=== PATIENT | male | born 1960 | race Caucasian/White ===

== ENCOUNTER → 2018-02-27 10:43 | Outpatient (CLI) | payer MEDICARE, MEDICAID, SELFPAY ==
--- NOTE | 2018-02-27 10:54 | RAD_ITS ---
STUDY: X-RAY - LUMBAR SPINE REASON FOR EXAM: Male, 57 years old. Lower back pain TECHNIQUE: 5 view(s) of the lumbar spine were obtained. COMPARISON: None FINDINGS: Normal lumbar lordosis. There is no substantial scoliosis. There is a normal alignment of the vertebrae. There is multilevel endplate spondylosis of the lumbar vertebrae. Minor loss of disc space at L2-L3 and L1-L2. There is no demonstrated fracture. There is no demonstrated spondylolysis of the pars interarticulares. The soft tissue structures are unremarkable. RAD/L/S Spine Min 4 Views IMPRESSION: Mild spondylosis and degenerative disc disease Electronically Signed: Kushal Lopez MD at 15:19 EST , Service support ,
== END ==
PROVIDERS: Family Provider Family Medicine; PCP Family Medicine; Referring Provider Family Medicine; Visit Provider Family Medicine
DX: M54.9 Dorsalgia, unspecified (principal)
CPT/HCPCS: 72110

== ENCOUNTER → 2018-11-03 11:37 | Outpatient (CLI) | payer MEDICARE, MEDICAID, SELFPAY ==
--- NOTE | 2018-11-03 11:45 | RAD_ITS ---
STUDY: X-RAY - LEFT ANKLE REASON FOR EXAM: Male, 57 years old. Left ankle pain TECHNIQUE: 3 view(s) of the ankle. COMPARISON: None. FINDINGS: Normal visualized distal tibia and fibula. Normal medial and lateral malleoli. Normal tibiotalar articulation and ankle mortise. Normal visualized talus and calcaneus. The visualized subtalar, talonavicular, calcaneocuboid and tarsal articulations are normal. There is no demonstrated fracture. The soft tissue structures are unremarkable. RAD/Ankle min 3 Views IMPRESSION: Normal x-ray examination of the ankle. Electronically Signed: James Owens MD at 17:06 EDT , Service support ,
== END ==
PROVIDERS: Family Provider Family Medicine; PCP Family Medicine; Referring Provider Family Medicine; Visit Provider Family Medicine
DX: M25.572 Pain in left ankle and joints of left foot (principal)
CPT/HCPCS: 73610

== ENCOUNTER → 2019-01-08 11:11 | Outpatient (CLI) | payer MEDICARE, MEDICAID, SELFPAY ==
[2019-01-08 12:44] LABS: Anion Gap 6 (5-15); BUN 11 mg/dL (7-18); BUN/Creat Ratio 11.2 RATIO (10-20); Calcium,Total 8.8 mg/dL (8.5-10.1); Chloride 108 mmol/L (98-107); Creatinine, Serum 0.98 mg/dL (0.70-1.30); EST Glomerular Filtration Rate 83 mL/min (>60); Est Glom Filt Rate - Afr Amer 100 mL/min (>60); Glucose 83 mg/dL (74-106); Potassium 4.1 mmol/L (3.5-5.1); Sodium Level 140 mmol/L (136-145)
== END ==
PROVIDERS: Family Provider Family Medicine; PCP Family Medicine; Referring Provider Family Medicine; Visit Provider Family Medicine
DX: Z00.00 Encounter for general adult medical examination without abnormal findings (principal)
CPT/HCPCS: 36415; 80048

== ENCOUNTER → 2020-04-28 09:49 | Outpatient (CLI) | payer MEDICARE, MEDICAID, SELFPAY ==
--- NOTE | 2020-04-28 10:07 | RAD_ITS ---
STUDY: X-RAY - ABDOMEN/PELVIS REASON FOR EXAM: Male, 59 years old. ABD PAIN TECHNIQUE: AP supine and upright views of the abdomen and pelvis. COMPARISON: None. FINDINGS: Normal visualized lung bases. There is a mildly dilated, air-filled small bowel loop in the left abdomen. There is no demonstrated free abdominal air. Normal soft tissue structures. Normal visualized osseous structures. RAD/Abd Inc Decub and/or Erect IMPRESSION: Mildly dilated air-filled small bowel loop in the left abdomen. Ileus is felt to be more likely. Electronically Signed: Regino Case MD at 11:27 EST Tel , Service support ,
[2020-04-28 12:32] LABS: Absolute Neutrophil Count 3.3 X10^3/uL (2.0-7.7); Basophil# 0.01 X10^3/uL; Basophil% 0.2 % (0-1); Eosinophil# 0.08 X10^3/uL; Eosinophils% 1.4 % (0-5); Hematocrit 50.6 % (40-54); Hemoglobin 16.5 g/dL (13.0-16.5); Lymphocyte % 29.5 % (19-41); Mean Corp Hgb Conc 32.6 g/dL (32-36); Mean Corpuscular Hgb 29.7 pg (27.0-32.0); Mean Corpuscular Volume 91.2 fL (80-94); Mean Platelet Vol. 10.2 fl (6.2-12.0); Monocyte# 0.67 X10^3/uL; Monocyte% 11.6 % (0-10); NRBC Flagged by Analyzer 0 % (0-5); Neutrophil # 3.28 X10^3/uL (2.7-7.7); Platelet Count 192 K/mm3 (150-450); RBC Distribution Width CV 13.2 % (11.6-14.6); RBC Distribution Width SD 44.6 fl (35.1-43.9); Red Blood Count 5.55 M/mm3 (4.6-6.2); White Blood Count 5.8 K/mm3 (4.4-11.0)
== END ==
PROVIDERS: PCP Family Medicine; Referring Provider Family Medicine; Visit Provider Family Medicine
DX: R10.9 Unspecified abdominal pain (principal)
CPT/HCPCS: 36415; 74019; 85025

== ENCOUNTER → 2022-05-13 | Outpatient (CLI) | payer MEDICARE, MEDICAID, SELFPAY ==
[2022-05-13 15:28] LABS: Absolute Neutrophil Count 5.5 X10^3/uL (2.0-7.7); Basophil# 0.05 X10^3/uL; Basophil% 0.5 % (0-1); Eosinophil# 0.21 X10^3/uL; Eosinophils% 2.3 % (0-5); Hematocrit 51.3 % (40-54); Hemoglobin 16.9 g/dL (13.0-16.5); Lymphocyte % 28.1 % (19-41); Mean Corp Hgb Conc 32.9 g/dL (32-36); Mean Corpuscular Hgb 30.3 pg (27.0-32.0); Mean Corpuscular Volume 92.1 fL (80-94); Mean Platelet Vol. 9.4 fl (6.2-12.0); Monocyte# 0.86 X10^3/uL; Monocyte% 9.3 % (0-10); NRBC Flagged by Analyzer 0 % (0-5); Neutrophil # 5.49 X10^3/uL (2.7-7.7); Neutrophil % 59.3 % (47-70); Platelet Count 351 K/mm3 (150-450); RBC Distribution Width CV 13.3 % (11.6-14.6); RBC Distribution Width SD 45.1 fl (35.1-43.9); Red Blood Count 5.57 M/mm3 (4.6-6.2); White Blood Count 9.3 K/mm3 (4.4-11.0)
[2022-05-13 16:03] LABS: ALB/GLOB Ratio 1.2 RATIO (0.9-2.4); AST(SGOT) 15 U/L (15-37); Alanine Aminotransfer ALT/SGPT 24 U/L (16-61); Albumin, Serum 3.8 g/dL (3.2-5.0); Alkaline Phosphatase 73 U/L (45-117); Anion Gap 4 (5-15); BUN 13 mg/dL (7-18); BUN/Creat Ratio 14.2 RATIO (10-20); Chloride 109 mmol/L (98-107); Creatinine, Serum 0.92 mg/dL (0.70-1.30); EST Glomerular Filtration Rate 89 mL/min (>60); Est Glom Filt Rate - Afr Amer 107 mL/min (>60); Globulin 3.3 g/dL (2.2-4.2); Glucose 75 mg/dL (74-106); Potassium 4.1 mmol/L (3.5-5.1); Protein, Total 7.1 g/dL (6.4-8.2); Sodium Level 137 mmol/L (136-145); Thyroid Stim Hormone (TSH) 1.79 uIU/mL (0.358-3.74)
== END | disposition home or self-care (01) ==
LOC: MFPLAB 12:01
PROVIDERS: PCP Family Medicine; Visit Provider Family Medicine
DX: M79.89 Other specified soft tissue disorders (principal); Z12.5 Encounter for screening for malignant neoplasm of prostate; R00.1 Bradycardia, unspecified
CPT/HCPCS: 36415; 80053; 84153; 84443; 85025; G0103

== ENCOUNTER 2022-07-17 05:40 | Day surgery (SDC) | payer MEDICARE, MEDICAID, SELFPAY ==
[2022-07-17] VITALS (8 sets, daily range): BP systolic 90–126; BP diastolic 61–88; PULSE 64–80; RESP 16–18; TEMP 36.2–36.7; O2SAT 94–98; BMI 21.6
--- NOTE | 2022-07-17 | IMM_PTH ---
PATIENT: BHAVNA MORRIS LOC: [facility] [place] U#:[id number] AGE/SX: 61/M ROOM: RE07/17/[address]: Dr. Marino Nath MD : 1960 BED: DIS: 07/17/2022 SPEC #: [id number] RECD: 07/18/22 13:10 STATUS: DELVIN REQ #: [id number] LA: 07/17/22 00:[address]: Marino Nath DEPT: IMMUNOHISTOCHEMISTRY RECD BY: Celi Marie ENTERED: 07/18/22 13:11 SP TYPE: IMMUNO OTHR DR: Dr. Purvi Yoon MD Tissues: F - PROSTATE RIGHT Procedures: P40 (add) 34BE12 (initial) PHYSICIAN & INSTITUTION [place] [address] SPECIMEN INFORMATION: Tissue Source: Clinical Info: Elevated PSA Specimen Number: [id number] Dinesh CPT code: 00527, 74765 METHODOLOGY: Deparaffinized sections of prefer/formalin-fixed tissue or PAP/DQ stained slides are incubated with monoclonal/polyclonal antibodies/oligonucleotide probes. Localization is made via biotin free immunoperoxidase method. Appropriate controls are performed and reacted as expected. Results on target cell population are indicated in the following table: RESULTS: ANTIBODY / CLONE RESULT Block F 34BE12 (34BE12) negative P40 (BC28) negative These tests were developed and their performance characteristics determined by [facility]. They may not have been cleared or approved by the U.S. Food and Drug Administration. The FDA has determined that such clearance or approval is not necessary. The above immunohistochemical/dualISH markers are ordered and reviewed by the Pathologist. INTERPRETATION: Natalio Left prostate, base, core biopsy: Adenocarcinoma. AM:[email or web address] 07/19/2022
--- NOTE | 2022-07-17 | PROSBIL_PTH ---
PATIENT: BHAVNA MORRIS [place] [facility] [place][id number] AGE/SX: 61/M ROOM: RE07/17/[address]: Dr. Marino Nath MD : 1960 BED: DIS: 07/17/2022 SPEC #: [id number] RECD: 07/17/22 09:40 STATUS: DELVIN REKandi #: [id number] LA: 07/17/22 00:[address]: Marino Nath DEPT: SURGICAL PATHOLOGY RECD BY: Brett Deng ENTERED: 07/17/22 09:41 SP TYPE: PROST BX CHRIS DR: Dr. Purvi Yoon MD Tissues: A - PROSTATE RIGHT B - PROSTATE RIGHT C - PROSTATE RIGHT D - PROSTATE LEFT E - PROSTATE LEFT F - PROSTATE LEFT Procedures: PROSTATE BX HEADER OPERATION: Ultrasound-guided prostate biopsy PRE-OP DIAGNOSIS: Elevated PSA TISSUE SUBMITTED: A - Left base, B - Left middle, C - Left apex, D - Right base, E - Right middle, F - Right apex MICROSCOPIC DIAGNOSIS A. Left prostate, base, core biopsy: Adenocarcinoma. Jenny grade: 7 (3+4) Cores involved: 1 out of 1 Tissue involved: 100% Greatest tumor length: 12 millimeters Perineural invasion: Present B. Left prostate, middle, core biopsy: Adenocarcinoma. Jenny grade: 7 (3+4) Cores involved: 1 out of 1 Tissue involved: 95% Greatest tumor length: 12 millimeters C. Left prostate, apex, core biopsy: Adenocarcinoma. Wilmerding grade: 7 (3+4) Cores involved: 1 out of 1 Tissue involved: 85% Greatest tumor length: 12 millimeters Perineural invasion: Focally present D. Right prostate, base, core biopsy: Adenocarcinoma. Wilmerding grade: 7 (3+4) Cores involved: 1 out of 1 Tissue involved: 50% Greatest tumor length: 5 millimeters E. Right prostate, middle, core biopsy: Adenocarcinoma. Jenny grade: 7 (3+4), discontinuous Cores involved: 1 out of 1 Tissue involved: 85% Greatest tumor length: 8.5 millimeters Perineural invasion: Focally present F. Right prostate, apex, core biopsy: Adenocarcinoma. Jenny grade: 6 (3+3) Cores involved: 1 out of 1 Tissue involved: <1% Greatest tumor length: <1 millimeters Perineural invasion: Present See comment. AM:[email or web address] 07/18/2022 COMMENT F. Immunohistochemistry ([id number]) supports the above diagnosis. Case has been reviewed in consultation with Dr. Belcher who concurs with the above diagnosis. IDC:BANDAR MICROSCOPIC DESCRIPTION Slides are reviewed. GROSS DESCRIPTION A - Received is one container designated prostate, left base. The specimen consists of one elongated fragment of light escobar-white soft tissue measuring 1.5 cm in length and 0.1 cm in diameter. The specimen is totally submitted in one cassette. B - Received is one container designated prostate, left middle. The specimen consists of one elongated fragment of light escobar-white soft tissue measuring 1.5 cm in length and 0.1 cm in diameter. The specimen is totally submitted in one cassette. C - Received is one container designated prostate, left apex. The specimen consists of one elongated fragment of light escobar-white soft tissue measuring 1.3 cm in length and 0.1 cm in diameter. The specimen is totally submitted in one cassette. D - Received is one container designated prostate, right base. The specimen consists of one elongated fragments of light escobar-white soft tissue measuring 1.5 cm in length and 0.1 cm in diameter. The specimen is totally submitted in one cassette. E - Received is one container designated prostate, right middle. The specimen consists of one elongated fragments of light escobar-white soft tissue measuring 1.6 cm in length and 0.1 cm in diameter. The specimen is totally submitted in one cassette. F - Received is one container designated prostate, right apex. The specimen consists of one elongated fragments of light escobar-white soft tissue measuring 1.4 cm in length and 0.1 cm in diameter. The specimen is totally submitted in one cassette. / BANDAR:gaudencio 07/17/2022 TC:0 CPT: G0146
[2022-07-17] MEDS: Lactated Ringers 1,000 ML 15 ML IV (06:50)
--- NOTE | 2022-07-17 06:50 | US_ITS ---
PROCEDURE: Ultrasound Guided CLINICAL HISTORY: Male, 61 years old. ABN LABS CONSENT: Time-Out Called: Yes Consent form signed: YES PT-PTT Levels Checked: Yes TECHNIQUE: Under direct sonographic guidance, the urologist perform multiple core biopsies of the prostate. US/Prostate Biopsy IMPRESSION: Ultrasound-guided core biopsies of the prostate. Electronically Signed: Quique Vasquez MD at 8:39 EDT ,
--- NOTE | 2022-07-17 07:24 | DCINST_ITS ---
Discharge Instructions Diet Discharge Diet: No restrictions Follow Up Care Please Follow Up With: Marino Nath MD Test Results: Test results from this visit will be discussed in further detail at your follow- up appointment, if applicable. Discharge Plan Admission Primary Reason for Your Visit: prostate biopsy Attending Provider: Marino Nath Primary Care Provider: Purvi Yoon Discharge Orders/Prescriptions Prescriptions: No Action NK Referrals / Follow Up: Purvi Yoon MD [Primary Care Provider] - Marino Nath MD [Med Staff - Active Staff] - Disposition Disposition (needs filled in before D/C Order can be placed): Home, Self Care
--- NOTE | 2022-07-17 07:24 | PCM.HP.STD ---
HPI - General General Date of Service: 07/17/22 HPI Narrative BHAVNA MORRIS, is a 61 M who presents for a outpatient prostate biopsy organ to do this under sedation in the OR because of his physical conditions limits his ability to do this in the office. He has an elevated PSA and risk for cancer. [facility] Medical History (Updated 07/17/22 @ 07:09 by Ana Brandon) Abrasion Alcohol use Back pain Cerebral palsy Edentulous History of ulceration Marijuana use Prostate disease Smoker Uses wheelchair Walker as ambulation aid Wears glasses Home Medications NK 07/17/22 [History Last Taken Unknown] Allergy/AdvReac Type Severity Reaction Status Date / Time codeine Allergy NEEDS Verified 07/16/22 08:22 FOLLOW-UP Penicillins Allergy NEEDS Verified 07/16/22 08:22 FOLLOW-UP Family History (Updated 07/17/22 @ 07:12 by Ana Brandon) Brother CVA (cerebral vascular accident) Surgical History (Updated 07/17/22 @ 07:13 by Ana Brandon) History of ankle surgery Hx of foot surgery Hx of right knee surgery Social History (Updated 07/17/22 @ 07:14 by Ana Brandon) adopted: No household members: none number of children: 0 service: No current occupational status: retired and disabled pets and animals: No Smoking Status: Current every day smoker tobacco type: cigarettes Vital Signs Vital Signs Vital Signs: 07/17/22 06:40 07/17/22 06:40 Temperature 98.1 F Temperature Source Oral Pulse Rate 64 Respiratory Rate 16 Respiratory Pattern Normal Blood Pressure 126/85 H Blood Pressure Mean 98 Blood Pressure Source Monitor Blood Pressure Position Sitting Blood Pressure Location Right Arm Pulse Ox 95 Oxygen Delivery Method Room Air Weight Weight: 70.307 kg Body Mass Index (BMI) 21.6
[2022-07-17] MEDS: Cefazolin 2 GM in 0.9% Normal Saline 100 ML IV (07:33)
--- NOTE | 2022-07-17 07:50 | PCM.OPRPT ---
Report of Operation Date of Procedure: 07/17/22 Pre-Operative Diagnosis: Elevated PSA abnormal digital rectal exam Post-Operative Diagnosis: Same Surgery/Procedure Performed:: Ultrasound-guided transrectal biopsy of the prostate Description of Surgical Findings:: 61-year-old male has an elevated PSA is a cerebral palsy comes in for a biopsy under sedation in the operating room. He was taken back to the OR room 3 placed in on his side and comfort position ultrasound probe was placed in the rectum after sedation prostate measured 40 g in size a biopsy was done at the right base mid and apex and left base mid and apex after the biopsies were completed samples were sent off on ultrasound the prostate looks suspicious for cancer with hypoechoic areas in both sides of the prostate patient was taken back to the PACU in good condition he will be discharged home with antibiotics Surgeon: Marino Nath
== END 2022-07-17 09:37 | disposition home or self-care (01) ==
LOC: SDC 05:41 → AC 05:42
PROVIDERS: PCP Family Medicine; Referring Provider Urology; Visit Provider Urology
PROC: (CPT 55700; principal; 2022-07-17 07:20)
DX: C61 Malignant neoplasm of prostate (principal); R97.20 Elevated prostate specific antigen [PSA]; F17.210 Nicotine dependence, cigarettes, uncomplicated; Z99.3 Dependence on wheelchair; F12.90 Cannabis use, unspecified, uncomplicated
CPT/HCPCS: 55700; 00902; 76942; 88305; 88341; 88342; J7120; G0416; J2405

== ENCOUNTER 2022-10-18 07:06 | Day surgery (SDC) | payer MEDICARE, MEDICAID, SELFPAY ==
[2022-10-18] MEDS: Lactated Ringers 1,000 ML 15 ML IV (07:49)
[2022-10-18 07:52] VITALS: BP 105/70; PULSE 59; RESP 18; TEMP 36.4; O2SAT 98; BMI 22.4
--- NOTE | 2022-10-18 09:29 | DCINST_ITS ---
Discharge Instructions Diet Discharge Diet: No restrictions Activity Discharge Activity: Return to Normal Activity and May Not Drive (while taking narcotic pain medications.) Dressing / Incision Call your doctor if you observe: Fever of 101 or Higher Follow Up Care Please Follow Up With: Marino Nath MD When: Call [phone] for an appointment Test Results: Test results from this visit will be discussed in further detail at your follow- up appointment, if applicable. Discharge Plan Admission Attending Provider: Marino Nath Primary Care Provider: Purvi Yoon Discharge Orders/Prescriptions Prescriptions: No Action NK Referrals / Follow Up: Purvi Yoon MD [Primary Care Provider] - Disposition Disposition (needs filled in before D/C Order can be placed): Home, Self Care
--- NOTE | 2022-10-18 09:29 | PCM.HP.STD ---
HPI - General General Date of Service: 10/18/22 Chief Complaint: High risk prostate cancer HPI Narrative BHAVNA MORRIS, is a 61 M who presents for placement of gold markers he is going to have radiation therapy for high risk prostate cancer PFS Medical History Abrasion Alcohol use Back pain Cerebral palsy Edentulous History of ulceration Marijuana use Prostate disease Smoker Uses wheelchair Walker as ambulation aid Wears glasses Home Medications NK 07/17/22 [History Last Taken Unknown] Allergy/AdvReac Type Severity Reaction Status Date / Time codeine Allergy NEEDS Verified 09/13/22 10:08 FOLLOW-UP Penicillins Allergy NEEDS Verified 09/13/22 10:08 FOLLOW-UP Family History Brother CVA (cerebral vascular accident) Surgical History History of ankle surgery Hx of foot surgery Hx of right knee surgery Social History adopted: No household members: none number of children: 0 current occupational status: retired and disabled pets and animals: No Smoking Status: Current every day smoker tobacco type: cigarettes alcohol intake: former substance use type: does not use Vital Signs Vital Signs Vital Signs: 10/18/22 07:52 10/18/22 07:52 Temperature 97.6 F L Temperature Source Temporal Pulse Rate 59 L Respiratory Rate 18 Respiratory Pattern Normal Blood Pressure 105/70 Blood Pressure Mean 81 Blood Pressure Source Monitor Blood Pressure Position Semi-Fowlers Blood Pressure Location Right Arm Pulse Ox 98 Oxygen Delivery Method Room Air Weight Weight: 73.028 kg Body Mass Index (BMI) 22.4
[2022-10-18] MEDS: Cefazolin 2 GM in 0.9% Normal Saline 100 ML IV (11:22)
--- NOTE | 2022-10-18 11:37 | OP.PCM_ITS ---
Report of Operation Date of Procedure: 10/18/22 Pre-Operative Diagnosis: Prostate cancer Post-Operative Diagnosis: High risk prostate cancer Surgery/Procedure Performed:: Placement of gold markers Description of Surgical Findings:: The penis and testicles were prepped and draped in usual sterile fashion, ultrasound probe was placed into the rectum and biplanar ultrasound was performed on the prostate. Identified the base mid and apex of the prostate identified the transition zone prostate. Then using a needle the first grade and center marker was placed into the right base of the prostate, the second grade and center marker was placed in the left base of the prostate, and the third core marker was placed in the right apex of the prostate after all 3 markers were placed the placement of the markers were confirmed by ultrasonography. Surgeon: Marino Nath Type of Anesthesia: MAC
[2022-10-18 11:48] VITALS: BP 105/70; BP 90/66; PULSE 64; RESP 18; TEMP 36.6; O2SAT 95
[2022-10-18 11:50] VITALS: BP 105/70; BP 94/66; PULSE 55; RESP 18; O2SAT 98
[2022-10-18 11:55] VITALS: BP 101/69; BP 105/70; PULSE 59; RESP 18; O2SAT 96
[2022-10-18 12:00] VITALS: BP 104/71; BP 105/70; PULSE 57; RESP 18; TEMP 36.6; O2SAT 97
[2022-10-18 12:17] VITALS: BP 105/70
== END 2022-10-18 13:03 | disposition home or self-care (01) ==
LOC: SDC 07:10 → AC 07:11
PROVIDERS: PCP Family Medicine; Referring Provider Urology; Visit Provider Urology
PROC: (CPT 55874; principal; 2022-10-18 10:50)
DX: C61 Malignant neoplasm of prostate (principal); F17.210 Nicotine dependence, cigarettes, uncomplicated
CPT/HCPCS: 55876; 00400; J7120

== ENCOUNTER → 2022-11-04 | Outpatient (CLI) | payer MEDICARE, MEDICAID, SELFPAY ==
--- NOTE | 2022-11-04 08:29 | MRI_ITS ---
MR Pelvis WO/W Contrast 11/04/2022 8:55 AM COMPARISON: None CLINICAL HISTORY: 61 yo man with prostate cancer. TECHNIQUE: Axial T1-weighted and high-resolution axial T2-weighted MR images of the pelvis were obtained. Images were acquired for planning of radiation therapy. DISCUSSION: There is a large difficult to measure moderately T2 hypointense lesion which is very bright on DWI and very dark on ADC, involving the left anterior and posterior transitional zone, left anterior, posterior and medial peripheral zone as well as questionable extension into the right anterior transitional zone from apex to base. The lesion slightly involves the left seminal vesicle there is at least 5 mm extracapsular extension posterior laterally on the left. Prominent bilateral external iliac nodes. No evidence of metastatic disease to the bones. No local bladder invasion. MRI/Pelvis W/WO Contrast IMPRESSION: Limited examination due to motion artifact on several sequences. Despite limitations: -Bilateral disease involving the left and right transitional zone as well as the left peripheral zone. -Slight involvement of the left seminal vesicle. -At least 5 mm extracapsular extension posterolaterally on the left. -Prominent bilateral external iliac nodes. -No bone or bladder involvement. Electronically Signed: Gustavo Garcia MD at 23:54 EDT ,
== END | disposition home or self-care (01) ==
LOC: MRI 08:23
PROVIDERS: PCP Family Medicine; Referring Provider Student in an Organized Health Care Education/Training Program; Visit Provider Student in an Organized Health Care Education/Training Program
DX: C61 Malignant neoplasm of prostate (principal)
CPT/HCPCS: 72197; A9575

== ENCOUNTER → 2023-01-03 | Outpatient (CLI) | payer MEDICARE, MEDICAID, SELFPAY ==
--- NOTE | 2023-01-03 13:03 | CT_ITS ---
INDICATION: RLQ pain EXAMINATION: CT ABDOMEN AND PELVIS WITH CONTRAST - CT Abdomen And Pelvis W/ Contrast Injection TECHNIQUE: Helically acquired images were obtained of the abdomen and pelvis following IV contrast. A radiation dose optimization technique was used for this scan. IV Contrast dosage and agent: 100 cc Isovue-300 Oral contrast: Yes. COMPARISON: PET CT scan 09/10/2022 FINDINGS: LOWER CHEST: Bibasilar dependent changes. No cardiomegaly or pericardial effusion. LIVER: Homogeneous. No focal mass. GALLBLADDER AND BILIARY TREE: No calcified gallstones. No gallbladder distension or wall edema. No intra- or extrahepatic biliary ductal dilation. PANCREAS: No focal cystic or solid mass. SPLEEN: Normal size without focal cystic or solid mass. ADRENAL GLANDS: No nodules. KIDNEYS AND URETERS: Normal renal size and position. No hydronephrosis. PERITONEUM: No ascites or free air. BOWEL: No evidence of acute appendicitis. No stomach or bowel distension. No focal inflammatory change. LYMPH NODES: No enlarged mesenteric or retroperitoneal lymph nodes. VESSELS: Aorta is non-dilated. URINARY BLADDER: Unremarkable. REPRODUCTIVE ORGANS: Mild prostate hypertrophy with mass effect on the bladder base. Prostate bed implant therapy seeds present. ABDOMINAL WALL: Fat-containing umbilical and left inguinal hernias. BONES: No lytic or blastic abnormality. CT/Abdomen/Pelvis WITH Contrast IMPRESSION: No acute findings in the abdomen or pelvis. Electronically Signed: Ha Lemus MD at 16:33 EST ,
== END | disposition home or self-care (01) ==
LOC: CT 12:54
PROVIDERS: PCP Family Medicine; Referring Provider Family Medicine; Visit Provider Family Medicine
DX: R10.31 Right lower quadrant pain (principal)
CPT/HCPCS: 74177; Q9967

== ENCOUNTER 2023-02-19 10:03 | Day surgery (SDC) | payer MEDICARE, MEDICAID, SELFPAY ==
[2023-02-19] VITALS (7 sets, daily range): BP systolic 86–129; BP diastolic 59–89; PULSE 48–69; RESP 14–18; TEMP 36.3–36.9; O2SAT 96–100; BMI 21.8
--- NOTE | 2023-02-19 | EGD_PTH ---
PATHOLOGY RESULTS PATIENT: BHAVNA MORRIS LOC: [place] U#:[id number] AGE/SX: 62/M ROOM: RE02/19/[address]: Dr. Juan Diego Shore DO : 1960 BED: DIS: 02/19/2023 SPEC #: [id number] RECD: 02/19/23 11:51 STATUS: DELVIN MAURICIO #: [id number] LA: 02/19/23 00:[address]: Juan Diego Shore DEPT: SURGICAL PATHOLOGY RECD BY: Celi Marie ENTERED: 02/19/23 12:20 SP TYPE: EGD BIOPSY CHRIS DR: Dr. Purvi Yoon MD Tissues: Esophagus, NOS Esophagus, NOS Procedures: Frozen Section (charge) Special Stain Group II Surgery Specimen Level IV Alcian Blue/PAS (control) HEADER OPERATION: EGD with biopsy, frozen section, hemostasis PRE-OP DIAGNOSIS: Hematemesis TISSUE SUBMITTED: A - Distal esophagus mass biopsy, frozen section, B - Distal esophagus mass biopsy FROZEN SECTION DIAGNOSIS A - Distal esophagus mass, biopsy: Invasive adenocarcinoma. AM:[email or web address] 02/19/2023 Case has been reviewed in consultation with Dr. Belcher who concurs with the above diagnosis. IDC:BANDAR MICROSCOPIC DIAGNOSIS A. Distal esophagus mass, biopsy: Invasive adenocarcinoma. B. Distal esophagus mass, biopsy: Invasive moderately differentiated adenocarcinoma. See comment. SJ:gaudencio 02/21/2023 COMMENT B. Alcian blue/PAS stain with matched control is used in the evaluation and shows rare cells with intestinal metaplasia. Immunohistochemistry ([id number]) for microsatellite instability (mismatch repair of protein) will be performed and the results will be reported separately. Molecular studies on the tumor can be performed if clinically indicated. Please notify the laboratory if they are needed. MICROSCOPIC DESCRIPTION Slides are reviewed. GROSS DESCRIPTION A - Received fresh for frozen section consultation labeled with the patient's name is a specimen designated distal esophagus mass biopsy. The specimen consists of multiple irregular fragments of escobar tissue that in aggregate measure 0.6 x 0.2 x 0.1 cm. The specimen is submitted in its entirety for frozen section consultation in one block. / AM:gaudencio 02/19/2023 B - Received in fixative is one container labeled with the patient's name and designated distal esophageal mass biopsy. The specimen consists of multiple irregular fragments of light escobar soft tissue that in aggregate measure 2.0 x 0.5 x 0.1 cm. The specimen is totally submitted in one cassette. / SJ:gaudencio 02/20/2023 TC:0 CPT: 89057 x2, 55503, 65077
--- NOTE | 2023-02-19 | IMM_PTH ---
PATHOLOGY RESULTS PATIENT: BHAVNA MORRIS LOC: [place] U#:[id number] AGE/SX: 62/M ROOM: RE02/19/[address]: Dr. Juan Diego Shore DO : 1960 BED: DIS: 02/19/2023 SPEC #: [id number] RECD: 02/21/23 14:21 STATUS: DELVIN REKandi #: [id number] LA: 02/19/23 00:[address]: Juan Diego Shore DEPT: IMMUNOHISTOCHEMISTRY RECD BY: Celi Marie ENTERED: 02/21/23 14:31 SP TYPE: IMMUNO OTHR DR: Dr. Purvi Yoon MD Tissues: Esophageal mucous membrane Procedures: MSH2 (add) MLH-1 (add) MSH6 (add) Anti-PMS2 (add) CK20 (add) CK7 (add) KI-67 (add) P53 (add) 34BE12 (add) GATA3 (add) PSAP (add) MOC-31 (add) HER-2-TANIA (initial) PHYSICIAN & [address] [address] SPECIMEN INFORMATION: Tissue Source: B - Distal esophagus Clinical Info: Hematemesis Specimen Number: [id number] CPT code: 18031, 18516 x12 METHODOLOGY: Deparaffinized sections of prefer/formalin-fixed tissue or PAP/DQ stained slides are incubated with monoclonal/polyclonal antibodies/oligonucleotide probes. Localization is made via biotin free immunoperoxidase method. Appropriate controls are performed and reacted as expected. Results on target cell population are indicated in the following table: RESULTS: ANTIBODY / CLONE RESULT Block B Her-2neu (CB11) negative (0) MOC-31 (4561) positive MLH-1 (M1) positive MSH2 (25D12) positive MSH6 (44) positive PMS2 (CQK4581) positive Ki-67 (30-9) positive, high P53 (DO-7) positive, missense mutation pattern These tests were developed and their performance characteristics determined by [facility]. They may not have been cleared or approved by the U.S. Food and Drug Administration. The FDA has determined that such clearance or approval is not necessary. The above immunohistochemical/dualISH markers are ordered and reviewed by the Pathologist. INTERPRETATION: B. Distal esophagus, biopsy: Invasive adenocarcinoma. Result of Microsatellite Instability Study: Negative (no loss of mismatch protein; no microsatellite instability detected). BANDAR:gaudencio 02/24/2023 ADDENDUM ADDENDUM 03/11/2023 10:40 ANTIBODY / CLONE RESULT Block B PSAP (PASE/4LJ) negative CK7 (OV-TL12/30) positive CK20 (KS20.8) negative 34BE12 (34BE12) positive GATA3 (L50-823) negative The above immunohistochemical/dualISH markers are ordered and reviewed by the pathologist.
[2023-02-19] MEDS: Lactated Ringers 1,000 ML 15 ML IV (10:40)
--- NOTE | 2023-02-19 11:19 | PCM.HP.BLA ---
History and Physical Date of Admission: 02/19/23 BHAVNA MORRIS, is a 62 M who presents to the office today for initial consult. [facility] established for prostate cancer with high-risk with biopsy diagnosis 07.17.22 and radiation therapy 11.11.22-12.23.22. He required use of Lomotil and Pyridium for management of side effects. Reports an episode of possible hematemesis at OV 12.7.23 with recommendation to see GI.? Pt has not had any more episodes of hematemesis since late December. Sister says they aren't sure if it was actual blood or something red that he ate. Denies history of heartburn or reflux. Is not having trouble swallowing. No other pain, BM are normal. Does not have any other pertinent health history or major surgeries. Is not taking any medications currently. ROS Const Constitutional: No fatigue ENT ENT: No difficulty swallowing Gastro GI: No abdominal pain, belching, bloating, change in bowel habits, change in stool character, coffee ground emesis, constipation, cramping, diarrhea, heartburn, difficulty swallowing, feeling full early, excessive flatus, incontinent of stools, Vomiting blood/hematemesis, Blood in stool, loose stools, Black,tarry stools, nausea/dyspepsia, pain with swallowing, vomiting or other Musc Musculoskeletal: Positive for abnormal gait and stiffness; No joint pain Skin Skin: No yellowing of the eye or itchy eyes Neuro Neurology: Positive for abnormal gait Psych Psychiatric: No anxiety and No depression Endo Endocrine: No fatigue Aller/Imm Allergy/Immunologic: No itchy eyes Josué/Lymp Hematologic/Lymphatic: No easy bleeding or easy bruising Exam Const General: cooperative and comfortable Nutritional Appearance: average body habitus and well nourished [facility] Head: normal to inspection Ears: hearing grossly normal bilaterally Nose: external nose normal Face and sinus: normal facial exam Mouth: oral mucosae normal Throat: posterior oropharynx normal Eyes General: appearance normal, both eyes and all related structures Neck Neck: normal visual inspection Chest Chest palpation & inspection: normal inspection of the chest and normal palpation of entire chest wall Resp Effort & Inspection: normal respiratory effort Auscultation: Bilateral: Clear to Auscultation Cardio Palpation: normal PMI Rate: regular rate Rhythm: regular rhythm GI Inspection: normal to inspection Auscultation: normal bowel sounds Percussion: normal to percussion Palpation: no hepatosplenomegaly Skin General: no rashes or lesions noted Neuro General: pa I have examined the patient and the H&P has been reviewed. There are no clinical changes since date of exam. I have examined the patient and the H&P has been reviewed. There are no clinical changes since date of exam. I have examined the patient and the H&P has been reviewed. There are no clinical changes since date of exam. 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 He completed radiation therapy delivered to the prostate. He has complaints of occasional hematemesis. History is obtained from his sister who is with him on his initial consultation. He does get occasional heartburn. He does not have any esophageal dysphagia. He denies any chest pain or shortness of breath. He does not take anything for nausea or reflux disease. He has lost about 20 pounds. He is not having any problems with his bowels and is not having any bleeding per rectum. The differential diagnosis for hematemesis and could be Bozena-Huffman tear, atypical gastroesophageal reflux disease, peptic ulcer disease, angiodysplasias, gastroparesis. He will undergo an upper endoscopy to evaluate his upper GI tract. Him and his sister were explained alternatives, risk, benefits include not withstanding bleeding, infection, sepsis, perforation, need for emergent surgery . He will have an ASA of 3. I have examined the patient and the H&P has been reviewed. There are no clinical changes since date of exam.
--- NOTE | 2023-02-19 12:22 | OP.CCLET_ITS ---
02/19/2023 [address] [place] [address] Re : Upper GI endoscopy procedure for Emmanuel Torres Dear Dr. Yoon This procedure was performed on Sunday, February 19, 2023. 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 Biopsied. Injected. Treated with argon plasma coagulation (APC). hemostatic spray applied. - No gross lesions in the stomach. - Normal first portion of the duodenum. Recommendations : - Discharge patient to home. - Clear liquid diet today. - Use Protonix (pantoprazole) 40 mg PO BID indefinitely. - Use sucralfate suspension 1 gram PO BID. - Continue present medications. My findings are described in the full procedure note, which is enclosed. If I can be of further assistance, please feel free to contact me at . Sincerely, Juan Diego Shore, 02/19/2023 12:21:59 PM This report has been signed electronically.
--- NOTE | 2023-02-19 12:22 | OP.EGD_ITS ---
Patient Name: Emmanuel Torres Procedure Date: 02/19/2023 11:20 AM Date of : 1960 Age: 62 Procedure: Upper GI endoscopy Indications: Hematemesis Providers: Juan Diego Shore DO Medicines: Monitored Anesthesia Care Patient Profile: This is a 62 year old male. Refer to note in patient chart for documentation of history and physical. Patient has symptoms of acute nausea and acute vomiting. Complications: No immediate complications. Procedure: Pre-Anesthesia Assessment: - Prior to the procedure, a History and Physical was performed, and patient medications and allergies were reviewed. The patient is competent. The risks and benefits of the procedure and the sedation options and risks were discussed with the patient. All questions were answered and informed consent was obtained. Patient identification and proposed procedure were verified by the physician in the pre-procedure area. Mental Status Examination: alert and oriented. Airway Examination: normal oropharyngeal airway and neck mobility. Respiratory Examination: clear to auscultation. CV Examination: normal. Prophylactic Antibiotics: The patient does not require prophylactic antibiotics. Prior Anticoagulants: The patient has taken no anticoagulant or antiplatelet agents. ASA Grade Assessment: II - A patient with mild systemic disease. After reviewing the risks and benefits, the patient was deemed in satisfactory condition to undergo the procedure. The anesthesia plan was to use monitored anesthesia care (MAC). Immediately prior to administration of medications, the patient was re-assessed for adequacy to receive sedatives. The heart rate, respiratory rate, oxygen saturations, blood pressure, adequacy of pulmonary ventilation, and response to care were monitored throughout the procedure. The physical status of the patient was re-assessed after the procedure. After obtaining informed consent, the endoscope was passed under direct vision. Throughout the procedure, the patient's blood pressure, pulse, and oxygen saturations were monitored continuously. The Endoscope was introduced through the mouth, and advanced to the second part of duodenum. The upper GI endoscopy was accomplished without difficulty. The patient tolerated the procedure well. Scope In: 11:31:11 AM Scope Out: 11:56:32 AM Total Procedure Duration Time 0 hours 25 minutes 21 seconds Findings: A large, ulcerating mass with bleeding and stigmata of recent bleeding was found in the lower third of the esophagus, 36 cm from the incisors. The mass was partially obstructing and circumferential. Biopsies were taken with a cold forceps for histology. Verification of patient identification for the specimen was done. Area was successfully injected with 5 mL of a 0.1 mg/mL solution of epinephrine for drug delivery. Fulguration to stop the bleeding by argon plasma at 0.3 liters/minute and 20 bai was successful. Estimated blood loss was minimal. To stop active bleeding, hemostatic spray was deployed. Multiple sprays were applied. There was no bleeding at the end of the procedure. No gross lesions were noted in the stomach. The first portion of the duodenum was normal. 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 Biopsied. Injected. Treated with argon plasma coagulation (APC). hemostatic spray applied. - No gross lesions in the stomach. - Normal first portion of the duodenum. Recommendation: - Discharge patient to home. - Clear liquid diet today. - Use Protonix (pantoprazole) 40 mg PO BID indefinitely. - Use sucralfate suspension 1 gram PO BID. - Continue present medications. Procedure Code(s): --- Professional --- 56364, 59, Esophagogastroduodenoscopy, flexible, transoral; with control of bleeding, any method 50958, Esophagogastroduodenoscopy, flexible, transoral; with biopsy, single or multiple 75200, 59,51, Esophagogastroduodenoscopy, flexible, transoral; with directed submucosal injection(s), any substance CPT copyright 2021 [employer]. All rights reserved. The codes documented in this report are preliminary and upon sheet metal worker maintenance review may be revised to meet current compliance requirements. Juan Diego Shore DO 02/19/2023 12:21:59 PM This report has been signed electronically. Number of Addenda: 0 Note Initiated On: 02/19/2023 11:20 AM
--- NOTE | 2023-02-19 12:48 | SUR.PHASEII ---
PATIENT'S SISTER IS AT THE BEDSIDE NOW TO LISTEN TO DR. KENT WHEN HE COMES IN.
== END 2023-02-19 13:12 | disposition home or self-care (01) ==
LOC: EN 10:05 → AC 10:06
PROVIDERS: PCP Family Medicine; Referring Provider Family Medicine; Visit Provider Internal Medicine Gastroenterology
PROC: 0DJ08ZZ Inspection of Upper Intestinal Tract, Via Natural or Artificial Opening Endoscopic (ICD-10-PCS; CPT 43235; principal; 2023-02-19 10:55)
DX: K92.0 Hematemesis (principal); C15.5 Malignant neoplasm of lower third of esophagus; C61 Malignant neoplasm of prostate; F17.200 Nicotine dependence, unspecified, uncomplicated
CPT/HCPCS: 43239; 43255; 81002; 88305; 88313; 88331; 88341; 88342; J7120; J2405

== ENCOUNTER 2023-03-21 10:16 | Day surgery (SDC) | payer MEDICARE, MEDICAID, SELFPAY ==
[2023-03-21 11:11] VITALS: BP 118/79; PULSE 53; RESP 16; TEMP 36.4; O2SAT 97; BMI 23.0
--- NOTE | 2023-03-21 11:17 | NURSING ---
pre-op; patient has no teeth and is hard to understand. patient answered pre op questions to the best of their ability. dr. hsu at bedside and all questions answered.
--- NOTE | 2023-03-21 11:31 | HP.PCM_ITS ---
History and Physical Date of Admission: 03/21/23 Date of Service: 03/19/23 MR#: [id number] Acct: [id number] Name: BHAVNA MORRIS Rep #: [id number] : 1960 Provider: Dr. Kip Ohara MD Age/Sex: 62/M Location: [facility] Status: Signed Intake Vital Signs 03/13/2410:25 03/19/2407:31 Height 5 ft 10 in 5 ft 10 in Weight: 159 lb 8 oz 160 lb BMI 22.8 22.9 BP 118/77 118/76 Blood Pressure Location Rt brachial Rt brachial Position Sitting Sitting Respiration 18 17 Pulse 72 70 Pulse Source Monitor Monitor Temp 98.5 F 97.4 F L Temp Source Temporal Pulse Oximetry (%) 97 95 Oxygen Delivery Method room air room air Intake Visit Reasons: PORT CONSULT Chief Complaint: port consult Is patient in pain?: No Allergies codeine Allergy (Verified 03/19/23 08:35) NEEDS FOLLOW-UPPenicillins Allergy (Verified 03/19/23 08:35) NEEDS FOLLOW-UP Medications simethicone 62.5 mg oral strips (Gas-X) 1 strip PO QD-BID PRN abdominal distention 12/11/22 [History Confirmed 03/19/23] phenazopyridine 100 mg tablet (Pyridium) 100 mg PO TID PRN pain with urination #30 tabs 12/17/22 [Rx Confirmed 03/19/23] diphenoxylate-atropine 2.5 mg-0.025 mg tablet (Lomotil) 1 tab PO BID PRN diarrhea #30 tabs 12/19/22 [Rx Confirmed 03/19/23] pantoprazole 40 mg tablet,delayed release 40 mg PO Q12H 2 months #120 tabs 03/04/23 [Rx Confirmed 03/19/23] sucralfate 100 mg/mL oral suspension 1 g (10 mL) PO Q6H 4 weeks #1,120 mL 03/04/23 [Rx Confirmed 03/19/23] PFSH Medical History Abrasion Alcohol use Back pain Cerebral palsy Edentulous History of ulceration Kidney stones Marijuana use Prostate disease Smoker Uses wheelchair Walker as ambulation aid Wears glasses Surgical History History of ankle surgery Hx of foot surgery Hx of right knee surgery Family History Brother CVA (cerebral vascular accident) Social History adopted: No household members: none number of children: 0 current occupational status: retired and disabled pets and animals: No Smoking Status: Current every day smoker tobacco type: cigarettes alcohol intake: former substance use type: does not use HPI HPI HPI: Patient is a 62-year-old male who presents for consideration of port placement. Patient was diagnosed with esophageal cancer on 02/19/2023 after after EGD was performed by Dr. Shore of gastroenterology for workup of hematemesis. He presents today with his sister who provides some of the history. They have met with oncology and plans are to begin chemotherapy but a date has not been set up. In the interim he is due to visit with thoracic surgery in [place] for a consultation on 03/25/2023. Patient no prior history of central line placement. Patient has no pacemaker or intracardiac defibrillator. Patient has a history of kidney stones but no significant renal dysfunction. Mr. Morris is not currently prescribed blood thinners. ROS General General: No weight change, appetite, fatigue, colon cancer, breast cancer or weakness HEENT HEENT: No difficulty swallowing, eye injury, eye surgery, swollen glands or trav rseness Endo Endocrine: No thyroid disease, diabetes mellitus, thyroid cancer, Hair loss, heat intolerance or cold intolerance Skin Skin: No rash or changing moles Musc Musculoskeletal: Yes arthritis; No back problems, rheumatoid arthritis, gout or joint pain Cardio Cardiovascular: Yes high blood pressure; No murmur, pacemaker, heart disease, atrial fibrillation, heart attack, heart stent, palpitations, shortness of breat with exertion or chest pain Psych Psychiatric: No depression, anxiety or hearing voices Resp Respiratory: No shortness of breath, No sleep apnea, No cough, No COPD, No asthma, No emphysema and No wheezing Gastro Gastrointestinal: No abdominal pain, No nausea or vomiting, Yes diarrhea, No constipation, No blood in stool, No acid reflux, No hemorrhoids, No ulcers, No gallbladder problem and No black,tarry stools Josué Hematologic: No blood thinners, No blood disorders, No bleeding, No anemia and No blood clots Neuro Neurologic: No system reviewed and no additional complaints, except as documented, No as per HPI, No abnormal gait, No abnormal hearing, No abnormal movements, No abnormal speech, No behavioral changes, No burning sensations, No confusion, No convulsions, No disequilibrium, No dizziness, No localized weakness, No frequent falls, No headache(s), No lack of coordination, No loss of vision, No memory loss, No numbness, No other visual disturbances, No radicular pain, No restless legs, No sensory deficit, No syncope, No tingling, No tremor(s), No weakness and No other Exam Const General: cooperative, comfortable, no acute distress and frail appearing Nutritional Appearance: thin Neck Neck: normal visual inspection Resp Effort & Inspection: normal respiratory effort Assessment and Plan Assessment and Plan (1) Encounter for care related to Port-a-Cath: Status: Acute Comment: Patient is a 62-year-old male with recent diagnosis of esophageal cancer who is evaluated for possible Port-A-Cath placement. He has no prior history of tiny tral vein access. He appears to be otherwise in a reasonable state of health. A formal date for initiation of chemotherapy has not been set. He is also pending evaluation for possible surgery. We have looked to arrange for the earliest available date so that he is prepared to begin chemotherapy as soon as possible in the event that he is considered a surgical candidate and has been given an operative date of this 03/21/2023. I have examined the patient and the H&P has been reviewed. There are no clinical changes since date of exam. Procedure and post procedure expectations reviewed with patient. He had several questions related to how this port will be accessed in the future which were answered. Otherwise he is prepared to proceed as discussed today and in greater detail during our visit earlier this week. Proceed to the operating room now for placement of right versus left internal jugular Port-A-Cath placement
[2023-03-21] MEDS: Clindamycin 900 MG/50 ML BAG 75 MG IV (11:45)
[2023-03-21] MEDS: Bupiv/Epi 0.5% Mpf 30 ML Vial INFILT (12:12)
--- NOTE | 2023-03-21 12:51 | OP.PCM_ITS ---
Report of Operation Date of Procedure: 03/21/23 Pre-Operative Diagnosis: Esophageal adenocarcinoma requiring durable venous acc ess for administration of chemotherapy Post-Operative Diagnosis: Same Surgery/Procedure Performed:: Ultrasound-guided insertion of right internal jugular Port-A-Cath Description of Surgical Findings:: ? Widely patent right internal jugular vein Surgeon: Kip Ohara Type of Anesthesia: General/Supplemental Anesthesiologist: Camilo Mars Specimen's removed: None Estimated Blood Loss (mL): 5 Description of Procedure: After appropriate identification in the preoperative holding area the patient was brought to the operating room. There he was administered preoperative antibiotics and positioned supine on the operating room table. Once sedation was begun, the upper chest and lower cervical region were prepped and draped in usual sterile fashion. A formal timeout was then conducted to confirm both the patient and procedure. Ultrasound was used to localize the right internal jugular vein. Then a wheal of 0.5% bupivacaine with epinephrine was raised superficially in this location and the vein was accessed under direct ultrasound guidance using a Seldinger technique with the finder needle from the line kit. Then the 035 guidewire was placed through the needle and its position/course were confirmed with x-ray. Next the position of the port pocket was determined and again local anesthetic was used to anesthetize the area of both the pocket and the tunneling cephalad. A transverse incision 3 cm in width was made down through the subcutaneous tissue. Selective electrocautery was used to obtain hemostasis. Then with blunt dissection the port pocket was developed. The catheter was connected to the tunneler and was tunneled up to the position of the guidewire. Here the dilator and peel-away sheath were placed over the guidewire and the guidewire was removed. Position was again confirmed with fluoroscopy. The catheter length was estimated based on the external placement of a hemostat to approximate the level of the lis and the cavoatrial junction. The catheter was then fed into the sheath and slowly the sheath was peeled away as the catheter was inserted fully into the neck. Back in the chest the excess catheter was trimmed and the port was connected to the catheter. The port was tied into the pocket using 3-0 Vicryl. Function was then tested using sterile saline on a Robles needle. It was locked with 3 mL of heparinized saline (concentration 50U/5mL). The port pocket was closed with a deep dermal stitch using a running 3-0 Vicryl followed by 4-0 Monocryl subcuticular stitch. The 1 cm incision in the neck was closed with a single interrupted subcuticular stitch using 4-0 Monocryl. Dermabond was applied as a dressing. Patient was then aroused from the sedation and taken to PACU for ongoing recovery were a portable chest x-ray was obtained to confirm port positioning and exclude any pneumothorax. Grafts/Implants Used: PowerPort ISP implantable port reference [id number], lot [id number] Complications None Admit VTE Documentation VTE Present on Admission: Yes VTE Mechan Device Prophylaxis: SCD's
[2023-03-21 12:55] VITALS: BP 117/72; BP 118/79; PULSE 62; RESP 16; TEMP 36.4; O2SAT 93
--- NOTE | 2023-03-21 12:56 | RAD_ITS ---
STUDY: X-RAY CHEST REASON FOR EXAM: Male, 62 years old. Status post line placement TECHNIQUE: Single AP portable view of the chest. COMPARISON: None. FINDINGS: A right-sided portacatheter has been placed with the tip at the junction of the superior vena cava and right atrium. Increased markings in the right infrahilar region. This may represent atelectasis and/or possible early infiltrate. There is no demonstrated pleural abnormality. Normal size heart. Normal mediastinum and santino. Normal visualized pulmonary arteries. There is atherosclerotic tortuosity of the aortic arch and descending thoracic aorta. Normal visualized thoracic spine. Normal visualized ribs, clavicles, and shoulders. There is no demonstrated abnormality of the visualized soft tissue structures of the upper abdomen. RAD/CXR for Line Placement IMPRESSION: The tip of the right anjum catheter is at the junction of the superior vena cava and right atrium. Electronically Signed: Quique Vasquez MD at 13:27 EST ,
[2023-03-21 13:00] VITALS: BP 108/71; BP 118/79; PULSE 60; RESP 16; O2SAT 99
[2023-03-21 13:09] VITALS: BP 118/79; BP 128/85; PULSE 63; RESP 16; TEMP 36.9; O2SAT 99
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
--- NOTE | 2023-03-21 13:28 | DCINST_ITS ---
Discharge Instructions Diet Discharge Diet: No restrictions Activity Discharge Activity: May Shower May shower in (days): 1 Ice area for (Minutes): 20 Additional Activity Instructions:: Limit the activity by the nearest upper extremity for 48 hours postop Dressing / Incision Call your doctor if your incision/area has: Increased Pain/ Swelling, Increased Redness, Foul Smelling Discharge and Swelling at the incision site Call your doctor if you observe: Fever of 101 or Higher Remove Dressing in: do not remove dressing (Dermabond (surgical glue) expected to dissolve spontaneously within 7 to 10 days postop using regular showering) Cleanse incision/area with: Soap & Water Follow Up Care Test Results: Test results from this visit will be discussed in further detail at your follow- up appointment, if applicable. Discharge Plan Admission Primary Reason for Your Visit: Port-A-Cath placement Attending Provider: Kip Ohara Primary Care Provider: Purvi Yoon Discharge Orders/Prescriptions Prescriptions: No Action Gas-X 62.5 mg strip 1 strip PO QD-BID PRN (Reason: abdominal distention) phenazopyridine [Pyridium] 100 mg tablet 100 mg PO TID PRN (Reason: pain with urination) Qty: 30 1RF Rx Instructions: take one tab PO tid diphenoxylate-atropine [Lomotil] 2.5-0.025 mg tablet 1 tab PO BID PRN (Reason: diarrhea) Qty: 30 0RF Rx Instructions: take one tablet PO as needed for for diarrhea, max 8 per day sucralfate 100 mg/mL suspension 1 g PO Q6H 28 Days Qty: 1120 0RF pantoprazole 40 mg tablet,delayed release (DR/EC) 40 mg PO Q12H 60 Days Qty: 120 3RF Referrals / Follow Up: Purvi Yoon MD [Primary Care Provider] - Disposition Disposition (needs filled in before D/C Order can be placed): Home, Self Care
[2023-03-21 14:05] VITALS: BP 118/79; BP 138/102; PULSE 79; RESP 16; TEMP 36.2; O2SAT 96
== END 2023-03-21 14:10 | disposition home or self-care (01) ==
LOC: SDC 10:17 → AC 10:18
PROVIDERS: PCP Family Medicine; Referring Provider Surgery; Visit Provider Surgery
PROC: (CPT 36561; principal; 2023-03-21 11:45)
DX: Z45.2 Encounter for adjustment and management of vascular access device (principal); C15.5 Malignant neoplasm of lower third of esophagus; G80.9 Cerebral palsy, unspecified; F17.210 Nicotine dependence, cigarettes, uncomplicated; Z99.3 Dependence on wheelchair
CPT/HCPCS: 36561; 00532; 71045; 77001; 77014; C1894; J7120; Q9967; A4216; C1788

== ENCOUNTER 2023-05-03 15:53 | Emergency (ER) | payer MEDICARE, MEDICAID, SELFPAY ==
[2023-05-03 15:53] VITALS: BP 99/72; PULSE 85; RESP 16; TEMP 35.9; O2SAT 99; BMI 21.5
[2023-05-03 16:10] VITALS: BMI 21.7
--- NOTE | 2023-05-03 16:12 | EX.ED.DYSGE1 ---
HPI <PEMA Martinez - Last Filed: 05/03/23 18:49> History of Present Illness Chief Complaint: Nausea/Vomiting Narrative Narrative: 62-year-old male with PMH of prostate adenocarcinoma status postresection and radiation, active esophageal cancer presents with nausea and vomiting. He was diagnosed with distal esophageal cancer on 02/19/2023. He receives chemotherapy on Mondays and radiation Friday through Fridays. He finished his last chemo treatment on 04/28/23 and still more radiation treatments scheduled next week. Since the treatment started he has only been eating soup and he states every time after he eats he vomits around 3 times a day. He tried Zofran and some other nausea tablet without improvement. He also has generalized abdominal pain. He has a normal solid stool once daily and no urinary symptoms. PFSH <PEMA Martinez - Last Filed: 05/03/23 18:49> PFSH Medical History Abrasion Alcohol use Back pain Cancer Cerebral palsy Constipation Drug induced neutropenia Edentulous Encounter for education History of ulceration Kidney stones Marijuana use Prostate disease Smoker Uses wheelchair Walker as ambulation aid Wears glasses Home Medications simethicone 62.5 mg oral strips (Gas-X) 1 strip PO QD-BID PRN abdominal distention 12/11/22 [History Last Taken Unknown] phenazopyridine 100 mg tablet (Pyridium) 100 mg PO TID PRN pain with urination #30 tabs 12/17/22 [Rx Last Taken Unknown] diphenoxylate-atropine 2.5 mg-0.025 mg tablet (Lomotil) 1 tab PO BID PRN diarrhea #30 tabs 12/19/22 [Rx Last Taken Unknown] pantoprazole 40 mg tablet,delayed release 40 mg PO Q12H 2 months #120 tabs 03/04/23 [Rx Last Taken Unknown] sucralfate 100 mg/mL oral suspension 1 g (10 mL) PO Q6H 4 weeks #1,120 mL 03/04/23 [Rx Last Taken Unknown] lidocaine-prilocaine 2.5 %-2.5 % topical cream 1 applic topical ONCE PRN port access 30 days #30 grams 03/24/23 [Rx Last Taken Unknown] ondansetron 8 mg disintegrating tablet 8 mg PO Q8H PRN nausea and vomiting #30 tabs 03/24/23 [Rx Last Taken Unknown] prochlorperazine maleate 10 mg tablet 10 mg PO Q6H PRN nausea and vomiting #30 tabs 04/16/23 [Rx Last Taken Unknown] promethazine 25 mg tablet 25 mg PO Q6H PRN 04/21/23 [History Last Taken Unknown] MAGIC MOUTH WASH (BMX) 180 mL suspension 15 ml PO .qid PRN pain with swallowing #180 mL 04/23/23 [Rx Last Taken Unknown] metoclopramide HCl 10 mg tablet (Reglan) 10 mg PO Q6H PRN nausea and vomiting 3 days #12 tabs 05/03/23 [Rx Last Taken Unknown] Allergy/AdvReac Type Severity Reaction Status Date / Time codeine Allergy NEEDS Verified 05/03/23 15:53 FOLLOW-UP Penicillins Allergy NEEDS Verified 05/03/23 15:53 FOLLOW-UP Family History Brother CVA (cerebral vascular accident) Surgical History History of ankle surgery History of esophagogastroduodenoscopy (EGD) Hx of foot surgery Hx of right knee surgery Social History adopted: No household members: none number of children: 0 current occupational status: retired and disabled pets and animals: No Smoking Status: Current every day smoker tobacco type: cigarettes alcohol intake: former substance use type: does not use ROS <PEMA Martinez - Last Filed: 05/03/23 18:49> ROS ED ROS Narrative Constitutional: Negative for fever, chills, malaise. CVS: Negative for chest pain. Respiratory: Negative for shortness of breath. GI: Positive for abdominal pain, nausea, vomiting. Negative for diarrhea, constipation, melena, hematochezia. : Negative for dysuria, hematuria or frequency. EXAM <PEMA Martinez - Last Filed: 05/03/23 18:49> Physical Exam Narrative Exam Narrative: CONST: Patient sitting in no acute distress. EYES: Normal inspection. NECK: Normal inspection. RESP: No respiratory distress, CTAB. CVS: Regular rate and rhythm, no murmur, no gallop. ABD: Soft with generalized tenderness, no guarding or rebound, nondistended. SKIN: Color normal, no rash, warm, dry, intact. EXTREMITIES: Normal appearance, no pedal edema. NEURO: Oriented x4. PSYCH: Normal affect. Const Vital Signs: 05/03/23 15:53 05/03/23 17:41 05/03/23 18:43 Temperature 96.6 F L 98.6 F Temperature Source Temporal Pulse Rate 85 65 62 Respiratory Rate 16 18 18 Blood Pressure 99/72 115/76 113/75 Blood Pressure Mean 81 89 87 Pulse Ox 99 97 96 Oxygen Delivery Method Room Air <Dr. Johnnie Ly DO - Last Filed: 05/03/23 18:58> Physical Exam Const Vital Signs: 05/03/23 15:53 05/03/23 17:41 05/03/23 18:43 Temperature 96.6 F L 98.6 F Temperature Source Temporal Pulse Rate 85 65 62 Respiratory Rate 16 18 18 Blood Pressure 99/72 115/76 113/75 Blood Pressure Mean 81 89 87 Pulse Ox 99 97 96 Oxygen Delivery Method Room Air MDM <PEMA Martinez - Last Filed: 05/03/23 18:49> [facility] Narrative Medical decision making narrative: History gathered from: Patient and sister Differential: Obstruction, diverticulitis, acute kidney injury, dehydration Consults: Oncology Patient has ongoing nausea/vomiting since being diagnosed with esophageal cancer and starting chemotherapy and radiation treatments. He states he vomits after every meal. He is only eating soup. He appears well and nontoxic. BP is 99/72 with otherwise normal vital signs. He has slightly dry mucous membranes. Normal cardiopulmonary exam. Abdomen soft with generalized tenderness. Labs show leukopenia at 1.9 and hemoglobin of 10.6 similar to previous. It has been trending down since March. Platelets are normal at 155. CMP overall unremarkable?potassium is 3.4, normal renal function, protein and albumin from chronic malnutrition. Normal LFTs and lipase. CT scan of the chest/abdomen/pelvis shows no acute findings. There is thickening of the distal esophagus consistent with his cancer. There is retroperitoneal adenopathy which could be necrosis of malignancy. No acute abdominal findings. After IV fluids and Reglan patient blood pressure is improved and he feels better. He tolerated a dose of p.o. liquid potassium. I discussed his visit with Bibiana from his oncology office who is familiar with him and states he has a follow-up in 2 days. She is comfortable with a short prescription for Reglan. He was discharged in stable condition. Lab Data Labs: Laboratory Results - last 24 hr 05/03/23 16:25 WBC 1.1 L* RBC 3.40 L Hgb 10.6 L Hct 31.8 L MCV 93.5 MCH 31.2 MCHC 33.3 RDW Std Deviation 43.8 RDW Coeff of Sonia 13.3 Plt Count 155 MPV 9.6 Immature Gran % (Auto) 1.900 H Neut % (Auto) 68.0 Lymph % (Auto) 7.5 L [place] % (Auto) 20.8 H Eos % (Auto) 0.9 Baso % (Auto) 0.9 Absolute Neuts (auto) 0.7 L Absolute Lymphs (auto) 0.08 L Nucleated RBC % 0 Diff Path Review May foll Platelet Estimate ADEQUATE RBC Morphology NORM C+C Sodium 141 Potassium 3.4 L Chloride 110 H Carbon Dioxide 26.0 Anion Gap 5 BUN 10 Creatinine 0.65 L Estim Creat Clear Calc 111.89 Est GFR (MDRD) Af Amer 160 Est GFR (MDRD) Non-Af 132 BUN/Creatinine Ratio 15.5 Glucose 95 Calcium 8.4 L Total Bilirubin 0.30 AST 11 L ALT 16 Alkaline Phosphatase 56 Total Protein 5.8 L Albumin 2.8 L Globulin 3.0 Albumin/Globulin Ratio 0.9 Lipase 13 Radiography Diagnostic Testing: Clinical Impression(s) from Imaging Studies Chest/Abdomen/Pelvis CT 05/03/23 16:40 IMPRESSION: 1. Retroperitoneal adenopathy. Low-attenuation center of a few retroperitoneal nodes suggest necrosis and malignancy. 2. Wall thickening of the distal esophagus, perhaps secondary to infection/inflammation or neoplasm as previously described. 3. No distinct pulmonary parenchymal abnormality. 4. Colonic diverticulosis without discrete evidence of acute diverticulitis. Electronically Signed: Hernan Malloy DO at 17:54 EDT , <Dr. Johnnie Ly DO - Last Filed: 05/03/23 18:58> [facility] MDM Narrative Medical decision making narrative: History gathered from: Patient and sister Differential: Obstruction, diverticulitis, acute kidney injury, dehydration Consults: Oncology Patient has ongoing nausea/vomiting since being diagnosed with esophageal cancer and starting chemotherapy and radiation treatments. He states he vomits after every meal. He is only eating soup. He appears well and nontoxic. BP is 99/72 with otherwise normal vital signs. He has slightly dry mucous membranes. Normal cardiopulmonary exam. Abdomen soft with generalized tenderness. Labs show leukopenia at 1.9 and hemoglobin of 10.6 similar to previous. It has been trending down since March. Platelets are normal at 155. CMP overall unremarkable?potassium is 3.4, normal renal function, protein and albumin from chronic malnutrition. Normal LFTs and lipase. CT scan of the chest/abdomen/pelvis shows no acute findings. There is thickening of the distal esophagus consistent with his cancer. There is retroperitoneal adenopathy which could be necrosis of malignancy. No acute abdominal findings. After IV fluids and Reglan patient blood pressure is improved and he feels better. He tolerated a dose of p.o. liquid potassium. I discussed his visit with Bibiana from his oncology office who is familiar with him and states he has a follow-up in 2 days. She is comfortable with a short prescription for Reglan. He was discharged in stable condition. This patient was seen with a PA/FIREWALL SECURITY ENGINEER Individually assessed they patient including history and physical. I have reviewed everything on the chart that is available and agree with the documentation provided by the PA/FIREWALL SECURITY ENGINEER including discussion about the assessment, treatment plan, discussion, and return precautions. Patient presenting with nausea, vomiting status post esophageal cancer diagnosis chemotherapy, radiation therapy. Patient well-appearing has been able to tolerate some p.o. soup. Vital signs are stable. He is afebrile. Screening lab work all appears to be baseline. Patient feels better after getting Reglan and IV fluids. CT of the chest abdomen pelvis obtained and shows some retroperitoneal adenopathy and some retroperitoneal nodes with necrosis. This also shows wall thickening of the distal esophagus with history of cancer. Overall we discussed this with hematology/oncology and they feel he stable for discharge. He is given Reglan for home. Return precautions discussed. Lab Data Labs: Laboratory Results - last 24 hr 05/03/23 16:25 WBC 1.1 L* RBC 3.40 L Hgb 10.6 L Hct 31.8 L MCV 93.5 MCH 31.2 MCHC 33.3 RDW Std Deviation 43.8 RDW Coeff of Sonia 13.3 Plt Count 155 MPV 9.6 Immature Gran % (Auto) 1.900 H Neut % (Auto) 68.0 Lymph % (Auto) 7.5 L [place] % (Auto) 20.8 H Eos % (Auto) 0.9 Baso % (Auto) 0.9 Absolute Neuts (auto) 0.7 L Absolute Lymphs (auto) 0.08 L Nucleated RBC % 0 Diff Path Review May foll Platelet Estimate ADEQUATE RBC Morphology NORM C+C Sodium 141 Potassium 3.4 L Chloride 110 H Carbon Dioxide 26.0 Anion Gap 5 BUN 10 Creatinine 0.65 L Estim Creat Clear Calc 111.89 Est GFR (MDRD) Af Amer 160 Est GFR (MDRD) Non-Af 132 BUN/Creatinine Ratio 15.5 Glucose 95 Calcium 8.4 L Total Bilirubin 0.30 AST 11 L ALT 16 Alkaline Phosphatase 56 Total Protein 5.8 L Albumin 2.8 L Globulin 3.0 Albumin/Globulin Ratio 0.9 Lipase 13 Radiography Diagnostic Testing: Clinical Impression(s) from Imaging Studies Chest/Abdomen/Pelvis CT 05/03/23 16:40 IMPRESSION: 1. Retroperitoneal adenopathy. Low-attenuation center of a few retroperitoneal nodes suggest necrosis and malignancy. 2. Wall thickening of the distal esophagus, perhaps secondary to infection/inflammation or neoplasm as previously described. 3. No distinct pulmonary parenchymal abnormality. 4. Colonic diverticulosis without discrete evidence of acute diverticulitis. Electronically Signed: Hernan Malloy DO at 17:54 EDT , Discharge Plan Triage Chief Complaint: Nausea/Vomiting ED Midlevel Provider: Yasmin Alejo ED Provider: Johnnie Ly Dx/Rx/DC Orders Clinical Impression: Cancer of lower third of esophagus, Nausea and vomiting, Dehydration, Acute hypokalemia Instructions: Cancer Esophagus Dc Prescriptions: New metoclopramide HCl [Reglan] 10 mg tablet 10 mg PO Q6H PRN (Reason: nausea and vomiting) 3 Days Qty: 12 0RF No Action Gas-X 62.5 mg strip 1 strip PO QD-BID PRN (Reason: abdominal distention) phenazopyridine [Pyridium] 100 mg tablet 100 mg PO TID PRN (Reason: pain with urination) Qty: 30 1RF Rx Instructions: take one tab PO tid MAGIC MOUTH WASH (BMX) 180 mL suspension 15 ml PO .qid PRN (Reason: pain with swallowing) Qty: 180 5RF Rx Instructions: diphenhydramine 12.5 mg/5 mL oral liquid 60 mL; aluminum-mag hydroxide-simethicone 400 mg-400 mg-40 mg/5 mL oral susp 60 mL; Lidocaine Viscous 2 % mucosal solution 60 mL; Per 180 mL ondansetron 8 mg tablet,disintegrating 8 mg PO Q8H PRN (Reason: nausea and vomiting) Qty: 30 2RF lidocaine-prilocaine 2.5-2.5 % cream 1 applic topical ONCE PRN (Reason: port access) 30 Days Qty: 30 2RF promethazine 25 mg tablet 25 mg PO Q6H PRN diphenoxylate-atropine [Lomotil] 2.5-0.025 mg tablet 1 tab PO BID PRN (Reason: diarrhea) Qty: 30 0RF Rx Instructions: take one tablet PO as needed for for diarrhea, max 8 per day sucralfate 100 mg/mL suspension 1 g PO Q6H 28 Days Qty: 1120 0RF pantoprazole 40 mg tablet,delayed release (DR/EC) 40 mg PO Q12H 60 Days Qty: 120 3RF prochlorperazine maleate 10 mg tablet 10 mg PO Q6H PRN (Reason: nausea and vomiting) Qty: 30 2RF Primary Care Provider: Purvi Yoon Referrals: Purvi Yoon MD [Primary Care Provider] - Activity Restrictions/Additional Instructions: Follow-up with your cancer team Disposition Disposition: Home, Self Care
[2023-05-03] MEDS: Metoclopramide 10 MG/2 ML Vial 5 MG IV (16:18)
[2023-05-03] MEDS: 0.9% Normal Saline (1000mL) 1,000 ML 999 ML IV (16:18)
--- NOTE | 2023-05-03 16:40 | CT_ITS ---
EXAM: CT CHEST, ABDOMEN AND PELVIS WITH INTRAVENOUS CONTRAST CLINICAL INDICATION: vomiting TECHNIQUE: Helically acquired images were obtained of the chest, abdomen and pelvis with intravenous contrast. This CT exam was performed using one or more of the following dose reduction techniques: automated exposure control, adjustment of the mA and/or kV according to patient size, and/or use of iterative reconstruction technique. CONTRAST: IV 100mL [id number] COMPARISON: PET/CT, 03/11/2023. FINDINGS: LIMITATIONS: The examination is minimally limited due to motion related artifacts. CHEST: LUNGS AND PLEURAL SPACES: Granuloma in the right upper lobe. No mass. No pleural effusion or thickening. No pneumothorax. HEART: Coronary calcifications. Heart size is normal. No pericardial effusion. MEDIASTINUM: Wall thickening of the distal esophagus, perhaps secondary to infection/inflammation or neoplasm as previously described. No mediastinal or hilar adenopathy. No hiatal hernia. THYROID: No significant abnormality. No thyroid lesions. ABDOMEN: LIVER: No significant abnormality. Homogeneous. No focal mass. GALLBLADDER AND BILE DUCTS: No significant abnormality. No calcified gallstones. No gallbladder distention or wall edema. No intra- or extrahepatic biliary ductal dilation. PANCREAS: No significant abnormality. No focal cystic or solid mass. SPLEEN: No significant abnormality. Normal size without focal cystic or solid mass. ADRENALS: No significant abnormality. No distinct left adrenal nodule as described on comparison PET CT. KIDNEYS AND URETERS: No significant abnormality. Normal renal size and position. No hydronephrosis. STOMACH AND BOWEL: Colonic diverticulosis without discrete evidence of acute diverticulitis. No stomach or bowel distention. PELVIS: APPENDIX: No evidence of acute appendicitis. BLADDER: No significant abnormality. REPRODUCTIVE: Normal as visualized. No mass. CHEST, ABDOMEN and PELVIS: INTRAPERITONEAL SPACE: No significant abnormality. No ascites or other fluid collection. No free air. BONES/JOINTS: Degenerative changes in the visualized axial and appendicular skeletal structures. No suspicious lytic or blastic abnormality. SOFT TISSUES: Left larger than right fat-containing inguinal hernias. Small fat-containing umbilical hernia. VASCULATURE: No significant abnormality. Aorta is non-dilated. No aortic dissection. No obvious central pulmonary embolism although this study was not performed with the pulmonary embolism protocol. LYMPH NODES: Retroperitoneal adenopathy. Low-attenuation center of a few retroperitoneal nodes suggest necrosis and malignancy. TUBES, LINES AND DEVICES: Right-sided chest port. CT/CT Chest, Abd, Pel w/Contrast IMPRESSION: 1. Retroperitoneal adenopathy. Low-attenuation center of a few retroperitoneal nodes suggest necrosis and malignancy. 2. Wall thickening of the distal esophagus, perhaps secondary to infection/inflammation or neoplasm as previously described. 3. No distinct pulmonary parenchymal abnormality. 4. Colonic diverticulosis without discrete evidence of acute diverticulitis. Electronically Signed: Hernan Malloy DO at 17:54 EDT ,
--- OUTSIDE RECORDS SUMMARY | 2023-05-03 16:47 | XMS RPT_ITS | CCD ---
Author Name Unknown Address [address] [place] [address] Organization [facility] Care Team Providers Care Library Clerical Assistant Name Role Phone MARVIN SANDY DO Primary Care Physician LYNN MILLER Referring Unavailable LYNN MILLER Consulting Unavailable EMMANUEL ROTHMAN DO Attending Unavailable EMMANUEL ROTHMAN DO Primary Care Unavailable EMMANUEL ROTHMAN DO Admitting Unavailable PROVIDER, UNKNOWN Consulting Unavailable PROVIDER, UNKNOWN Consulting Unavailable LYNN MILLER Referring Unavailable LYNN MILLER Consulting Unavailable SRAVAN LUO Attending Unavailable SRAVAN LUO Primary Care Unavailable SRAVAN LUO Admitting Unavailable PROVIDER, UNKNOWN Consulting Unavailable PROVIDER, UNKNOWN Consulting Unavailable Purvi Yoon Primary Care Provider Nelsy PEÑALOZA, Destiny Unavailable Unavailable JANNET HOPKINS Attending Unavailable PURVI YOON Primary Care Unavailable Allergies Allergy Classification Reported Allergen(s) Allergy Type Date of Onset Reaction(s) Facility (3 sources) Codeine; Translations: [codeine] Drug Allergy 03-19-2023 [facility] (1 source) Penicillins Propensity to adverse reactions 03-19-2023 [facility] Medications Current Medications Medication Drug Class(es) [...] Classification Problem Date Documented Da te Episodic/Chronic Alcohol-related disorders (1 source) Alcohol 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; Translations: [Alcohol dependence with unspecified alcohol-induced disorder] 04-02-2023 Chronic Cancer of esophagus (1 source) Malignant tumor of lower third of esophagus; Translations: [Malignant neoplasm of lower third of esophagus] 04-02-2023 Chronic Cardiac dysrhythmias (2 sources) Sinus bradycardia 11-11-2013 [...] [Cerebral palsy, unspecified] Onset: 01-17-2021 11-11-2013 Chronic Residual codes; unclassified (1 source) Tobacco user; Translations: [Tobacco use] 04-02-2023 Episodic Substance-related disorders (3 sources) Smoker; Translations: [Nicotine dependence] Onset: 01-17-2021 11-11-2013 Chronic Unclassified (2 sources) New Patient; Translations: [New Patient] Onset: 03-25-2023 Results Test Name Value Interpretation Reference Range Facil ity Vital Signs Date Time Vital Sign Value Performing Clinician Faci lity 03-25-2023 10:20-0500 Body height 177.8 cm Jannet [employer] Work Phone: [employer] 03-25-2023 10:20-0500 Body mass index (BMI) [Ratio] 23.1 kg/m2 Jannet [employer] Phone: [employer] 03-25-2023 10:20-0500 Body weight 73.03 kg Jannet [employer] Phone: [employer] 03-25-2023 10:20-0500 Diastolic blood pressure 82 mm[Hg] Jannet [employer] Phone: [employer] 03-25-2023 10:20-0500 Heart rate 68 /min Jannet [employer] Phone: [employer] 03-25-2023 10:20-0500 Systolic blood pressure 114 mm[Hg] [employer] Phone: [employer] 01-31-2021 08:28-0500 Body temperature 97.88 [degF] WU [employer] 01-31-2021 08:28-0500 Diastolic blood pressure 86 mm[Hg] WU SCHEAT[facility]LE DO [employer] 01-31-2021 08:28-0500 Heart rate 83 /min [facility] [employer] 01-31-2021 08:28-0500 Reason For Taking VItal Signs WU ANDERSON[facility] DO [facility] 01-31-2021 08:28-0500 Respiratory rate 17 /min WU [facility] DO [facility] 01-31-2021 08:28-0500 Systolic blood pressure 128 mm[Hg] [facility] DO [facility] 01-31-2021 00:00-0500 Heart rate 80 /min WU [facility] DO [facility] 01-31-2021 00:00-0500 Reason For Taking VItal Signs [facility] DO [facility] 01-30-2021 17:35-0500 Body temperature 98.24 [degF] [facility] [employer] DO [facility] 01-30-2021 17:35-0500 Diastolic blood pressure 88 mm[Hg] [facility] [employer] DO [facility] 01-30-2021 17:35-0500 Heart rate 97 /min WU [employer] DO [facility] 01-30-2021 17:35-0500 Reason For Taking VItal Signs [facility] DO [facility] 01-30-2021 17:35-0500 Respiratory rate 16 /min [facility] [employer] DO [facility] 01-30-2021 17:35-0500 Systolic blood pressure 134 mm[Hg] [facility] DO [facility] 01-30-2021 08:22-0500 Body temperature 97.88 [degF] [facility] DO [facility] 01-30-2021 08:22-0500 Diastolic blood pressure 72 mm[Hg] [facility] DO [facility] 01-30-2021 08:22-0500 Heart rate 78 /min WU [facility] DO [facility] 01-30-2021 08:22-0500 Mean blood pressure 94 mm[Hg] WU [facility] DO [facility] 01-30-2021 08:22-0500 Systolic blood pressure 138 mm[Hg] [facility] DO [facility] 01-30-2021 00:46-0500 Heart rate 64 /min WU [facility] DO [facility] 01-29-2021 15:52-0500 Heart rate 72 /min [facility] DO [facility] 01-29-2021 08:35-0500 Mean blood pressure 93 mm[Hg] [facility] DO [facility] 01-28-2021 15:14-0500 Body temperature 98.06 [degF] [facility] DO [facility] 01-27-2021 05:01-0500 Body weight 79.4 kg WU [facility] DO [facility] 01-24-2021 15:45-0500 Mean blood pressure 89 mm[Hg] [facility] DO [facility] 01-24-2021 08:04-0500 Body temperature 98.06 [degF] [facility] DO [facility] 01-20-2021 05:37-0500 Body weight 79.3 kg [facility] DO [facility] 01-18-2021 14:58-0500 Body weight 24.69 kg/m2 [facility] [employer] DO [facility] 01-17-2021 21:05-0500 Body height 180 cm [facility] [employer] DO [facility] 01-17-2021 21:05-0500 Body weight 80 kg [facility] DO [facility] 01-17-2021 21:05-0500 Body weight 24.69 kg/m2 [facility] DO [facility] 01-16-2021 11:08-0500 Body temperature 97.88 [degF] [facility] DO [facility] 01-16-2021 11:08-0500 Diastolic blood pressure 71 mm[Hg] [facility] DO [facility] 01-16-2021 11:08-0500 Heart rate 88 /min [facility] 01-16-2021 11:08-0500 Mean blood pressure 88 mm[Hg] [facility] 01-16-2021 11:08-0500 Reason For Taking VItal Signs [facility] 01-16-2021 11:08-0500 Respiratory rate 20 /min [facility] 01-16-2021 11:08-0500 Systolic blood pressure 121 mm[Hg] [facility] 01-16-2021 07:06-0500 Body temperature 98.6 [degF] [facility] 01-16-2021 07:06-0500 Diastolic blood pressure 75 mm[Hg] [facility] 01-16-2021 07:06-0500 Heart rate 93 /min [facility] 01-16-2021 07:06-0500 Mean blood pressure 90 mm[Hg] [facility] 01-16-2021 07:06-0500 Reason For Taking VItal Signs [facility] [employer] [facility] 01-16-2021 07:06-0500 Respiratory rate 20 /min [facility] [employer] 01-16-2021 07:06-0500 Systolic blood pressure 119 mm[Hg] [facility] [employer] [facility] 01-16-2021 03:22-0500 Body temperature 98.42 [degF] [facility] 01-16-2021 03:22-0500 Diastolic blood pressure 75 mm[Hg] [facility] 01-16-2021 03:22-0500 Heart rate 61 /min [facility] [employer] 01-16-2021 03:22-0500 Mean blood pressure 90 mm[Hg] [facility] 01-16-2021 03:22-0500 Reason For Taking VItal Signs [facility] 01-16-2021 03:22-0500 Systolic blood pressure 119 mm[Hg] [facility] 01-15-2021 11:16-0500 Heart rate 89 /min [facility] [employer] 01-14-2021 16:36-0500 Body height 180.3 cm [facility] 01-14-2021 16:36-0500 Body weight 91.5 kg [facility] 01-14-2021 16:36-0500 Body weight 28.15 kg/m2 [facility] 01-14-2021 15:24-0500 Body temperature 98.24 [degF] [facility] 01-14-2021 15:24-0500 Diastolic Blood Pressure NBP 72 1 [facility] 01-14-2021 15:24-0500 Mean blood pressure 86 mm[Hg] [facility] 01-14-2021 15:24-0500 Systolic Blood Pressure NBP 127 1 [facility] 01-14-2021 15:04-0500 Diastolic Blood Pressure NBP 84 1 [facility] 01-14-2021 15:04-0500 Mean blood pressure 95 mm[Hg] [facility] 01-14-2021 15:04-0500 Systolic Blood Pressure NBP 131 1 [facility] 01-14-2021 14:46-0500 Diastolic Blood Pressure NBP 88 1 [facility] 01-14-2021 14:46-0500 Mean blood pressure 97 mm[Hg] [facility] [employer] 01-14-2021 14:46-0500 Systolic Blood Pressure NBP 130 1 [employer] [facility] [facility] 01-14-2021 14:32-0500 Body temperature 97.52 [degF] [facility] 01-13-2021 22:50-0500 Body weight 91.5 kg [facility] [place] [place] 01-13-2021 22:50-0500 Heart rate 103 /min [facility] Encounters Encounter Date Encounter Type Care Provider Facility Start: 03-25-2023 End: 03-25-2023 ambulatory [facility] Start: 03-25-2023 End: 03-25-2023 Office outpatient new 60 minutes Jannet [employer] Phone: [facility]ovascular [facility] Thoracic Surgery Procedures Date Procedure Procedure Detail Performing Clinician Start: 01-05-2023 Urinalysis LYNN SULLIVAN Plan of Treatment Date Care Activity Detail Author Start: 10-18-2022 COVID-19 Vaccine ( season) COVID-19 Vaccine ( season) [facility] Start: 10-18-2022 Influenza vaccination Influenza Vacc ine (#1) [facility] Start: 2018 RSV Immunization age d 60 or older (1 - 1-dose 60+ series) RSV Immunization aged 60 or older (1 - 1-dose 60+ series) [facility] Start: 2008 Screening for malign ant neoplasm of lung Lung Cancer Screening [facility] Start: 2008 Zoster Vaccines (1 of 2) Zoster Vacc hira (1 of 2) [facility] Start: 1977 DTaP/Tdap/Td Vaccine s (1 - Tdap) DTaP/Tdap/Td Vaccines (1 - Tdap) [facility] Start: 1976 Hepatitis C screening Hepatitis C Sc reening [facility] Start: 1970 Depression Screening Depression Scre ening [facility] Start: 1964 Pneumococcal Vaccine : Pediatrics (0 to 5 Years) and At-Risk Patients (6 to 64 Years) (1 of 2 - PCV) Pneumococcal Vaccine: Pediatrics (0 to 5 Years) and At-Risk Patients (6 to 64 Years) (1 of 2 - PCV) [facility] Start: 11-19-1959 MMR Vaccines (1 of 1 - Standard series) MMR Vaccines (1 of 1 - Standard series) [facility] Start: 1958 HIV screening HIV Screening [facility] Start: 1958 Lipid panel Lipid Panel [facility] Start: 1958 Medicare Advantage A nnual Wellness Visit (AWV) Medicare Advantage Annual Wellness Visit (AWV) [facility] Start: 1960 Screening for malign ant neoplasm of colon [facility] Immunizations Immunization Date Immunization Notes Care Provider Fa cility 12-05-2020 influenza virus vaccine, unspecified formulation [facility] DO [facility] 06-06-2020 SARS-CoV-2 (COVID-19 ) mRNA-1273 vaccine [facility] 05-11-2020 SARS-CoV-2 (COVID-19 ) mRNA-1273 vaccine [facility] Payers Date Payer Category Payer Medicare [id number] 2023 Medicare ANTHEM MEDICARE ADVANTAGE ANTHEM DUAL ADVANTAGE [id number] 2023-Present [address] [place] [address] Medicare O [id number] 2017 Medicaid [id number] 2017 [place] [id number] 2017-Present [address] [place] [address] Medicaid [id number] 1958 Unknown [id number] 1960 Unknown [id number] Medicare [id number] Social History Date Type Detail Facility Start: 01-14-2021 Heavy tobacco smoker (finding) [facility] Start: 1960 Sex Assigned At Male A [facility] Start: 03-25-2023 [facility] History of tobacco use Cigarette Smoker [facility] Start: 03-25-2023 Cigarettes smoked current (pack per day) - Reported 1 [facility] Start: 03-25-2023 Tobacco use and exposure Smokeless tobacco non-user [facility] Start: 03-25-2023 Alcohol intake Current drinke r of alcohol (finding) [facility] Start: 03-25-2023 Tobacco use panel [facility] Start: 03-10-2023 Gender identity Identifies as male gender (finding) [facility] Medical Equipment Procedure Code Equipment Code Equipment Origin al Text Equipment Identifier Dates FDA Start: 01-14-2021 FDA Start: 01-14-2021 FDA Start: 01-14-2021 FDA Start: 01-14-2021 FDA Start: 01-14-2021 FDA Start: 01-14-2021 FDA Start: 01-14-2021 FDA Start: 01-14-2021 FDA Start: 01-14-2021 FDA Start: 01-14-2021 FDA Start: 01-14-2021 FDA Start: 01-14-2021 FDA Start: 01-14-2021 FDA Start: 01-14-2021 Clinical Note 03-25-2023 Note Date & Type Note Facility 03-25-2023 Note Oncology Nurse Navig ator met with patient and sisters at [facility] consultation. Navigator introduced self, role and assessed barriers to care. Patient has established oncology care at [facility] with Drs. Hawkins and Basilia. Patient referred by Dr. Hawkins for potential intervention vs surgical resection for esophageal cancer. Navigator provided ASCO answers cancer sheet and nutritional handouts: Shake Up Your Nutrition , Super Shake w/carnation instant breakfast sample , Soft and Moist High-Protein Menu Ideas , and Full Liquid Diet . Patient reports no concerns eating at this time but has lost weight. Patient also has a legal analyst consult in [place] next week. Patient is a current smoker, smoking cessation booklet provided, no interest in counseling services at this time. Patient encouraged to call with questions or concerns, contact information provided. Navigator will assist as needed. Encouragement and emotional support provided. [facility] History of Present illness Narrative 03-25-2023 Jannet [place], - 03/25/2023 10:00 AM EST Note Date & Type Note Facility 03-25-2023 History of Presen t illness Narrative Images from the original note were not included. [facility] CARDIOVASCULAR [facility] THORACIC SURGERY [address] [place] [id number] Dept: [phone] Dept Loc: [phone] Visit type: New Reason for Visit: Esophageal Cancer Assessment and plan Mr. Torres is a pleasant 62 year old male who was referred for newly diagnosed esophageal carcinoma. He has a history of prostate adenocarcinoma s/p radiation therapy. He is a smoker and has EtOH use disorder. He continues to smoke and drink fairly heavily. He is accompanied by two family members who provide most of his care. I reviewed the available pathology, imaging, and testing results with the patient and his family. Notably he has a partially obstructing lower esophageal tumor. Additionally, he has a recent PET which is concerning for retroperitoneal adenopathy involvement and adrenal involvement. We had a lengthy discussion regarding approaches to this disease and reviewed the most up-to-date NCCN guidelines. They are currently a poor surgical candidate due to advanced clinical stage, debility, comorbidities, and nutritional status. We discussed the importance of maintaining nutrition as well as potential for esophageal stent and/or enteral feeding tube. They are not interested in a feeding tube but would consider a stent. We discussed the role tobacco and alcohol play in their medical course and disease process. They are encouraged to decrease intake as able. They are not ready to abstain. At this point, I would recommend completion of staging studies and if appropriate definitive chemo/xrt with reservation of surgical intervention for palliation and salvage purposes only. They are agreeable to this recommendation. 1. Malignant neoplasm of lower third of esophagus (HCC) 2. Alcohol dependence with unspecified alcohol-induced disorder (HCC) 3. Tobacco abuse disorder History of Present Illness Emmanuel Torres is a 62 y.o. male referred by Dr. Hawkins for esophageal tumor. Per notes, patient presented with hematemesis. Patient was diagnosed with high risk prostate adenocarcinoma and is status post ultrasound- guided transrectal biopsy of the prostate (07/17/22). Patient received radiation from 11/11/22-12/23/22. Patient underwent an upper GI endoscopy on 02/19/2023 which showed a partially obstructing lower esophageal tumor. The biopsy of the tumor showed adenocarcinoma. Patient at this time hasn't had any concerns swallowing. Patient had a PET scan on 03/12/23 that demonstrated an abnormal study. Patient is a current smoker. Patient is here today for an evaluation. Past Medical History Past Medical History: Diagnosis Date Cerebral palsy (HCC) Prostate disease Past Surgical History Past Surgical History: Procedure Laterality Date ANKLE SURGERY KNEE SURGERY Right Family History No family history on file. Social History Social History Tobacco Use Smoking status: Every Day Packs/day: 1.00 Years: 47.00 Additional pack years: 0.00 Total pack years: 47.00 Types: Cigarettes Smokeless tobacco: Never Substance Use Topics Alcohol use: Yes Alcohol/week: 7.0 standard drinks of alcohol Types: 7 Cans of beer per week Drug use: Never Allergies Allergies Allergen Reactions Codeine Pcn [Penicillins] Medications Current Outpatient Medications: diphenoxylate-atropine (Lomotil) 2.5-0.025 MG tablet, Take 1 tablet by mouth as needed for diarrhea., Disp: , Rfl: pantoprazole (ProtoNix) 40 MG EC tablet, Take 40 mg by mouth every morning (before breakfast). Do not crush, chew, or split., Disp: , Rfl: phenazopyridine (Pyridium) 100 MG tablet, Take 100 mg by mouth., Disp: , Rfl: simethicone (Mylicon) 125 MG chewable tablet, Chew 62.5 mg every 6 hours as needed for flatulence., Disp: , Rfl: sucralfate (Carafate) 1 g tablet, Take by mouth 4 times daily (before meals and nightly)., Disp: , Rfl: Review of Systems Review of Systems All other systems reviewed and are negative. Physical Exam Vitals: BP 114/82 (BP Location: Right arm, Patient Position: Sitting, BP Cuff Size: Large adult) Pulse 68 Ht 5' 10 (1.778 m) Wt 161 lb (73 kg) BMI 23.10 kg/m Constitutional: General: Not in acute distress. Appearance: Cachectic. Not toxic-appearing. Ear, nose, mouth: Bilateral external ear and nose normal. Nose: Nose normal. Mouth: Appearance normal, no bleeding, moist mucus membranes Eyes: General: No scleral icterus. No discharge from bilateral eyes Extraocular Movements: Extraocular movements intact. Pupils equal and reactive bilaterally Cardiovascular: Heart: Regular rhythm. Normal heart sounds. Vascular: No carotid bruit. Edema: No edema in bilateral lower extremities Pulmonary: Effort: Pulmonary effort is normal. No respiratory distress. Breath sounds: Normal breath sounds. No wheezing. Chest wall: No tenderness. Abdominal: Appearance: Not distended Palpations: There is no abdominal tenderness, no guarding. Musculoskeletal: Bilateral upper and lower extremities: Normal range of motion, no deformity Head: Normocephalic and atraumatic. Neck: Normal range of motion and neck supple. No muscular tenderness. Lymphadenopathy: Cervical: No cervical adenopathy. Skin: General: Skin is warm and dry. Coloration: Skin is not jaundiced. Neurological: General: No focal deficit present. Cranial Nerves: No obvious cranial nerve deficit. Psychiatric: Mood and Affect: Mood normal. Thought Content: Thought content normal. Patient has good judgement and insight Mental Status: Alert and oriented to place, person, and time. Labs No results found for: WBC , HGB , PLT , NA , K , CREATININE Imaging Pet Scan 03/12/23 Surgical Pathology 02/19/23 Immunohistochemistry 02/19/23 EGD 02/19/23 ATTESTATION I personally performed the evaluation and management of Emmanuel Torres in the development of a treatment plan for this patient. I personally interviewed the patient and performed an individual physical examination. In addition, I discussed the patient's condition and treatment options with them. I have also reviewed and agree with the past medical, family and social history unless otherwise noted. All of the patient's questions were answered. I personally spent 60 minutes of time between the face to face encounter, physical exam, reviewing the medical history, coordinating the patient's care, counseling/educating the patient, ordering prescriptions/medications/tests/procedu res, interpreting results and documenting clinical information in the patient's electronic health record on the day of the encounter. Electronically signed by Jannet [place] DO, MS, FACOS Patient Care Team: Purvi Yoon as PCP - General (Family Medicine) Destiny Whittington RN as Registered Nurse (Oncology) Patient Care Team: PCP: Dr Purvi Yoon MD Oncology: Dr. Benjamin [place] MD Oncology: Dr. Osmel Cui DO Disclaimer INFORMED CONSENT:The nature and purpose of the proposed treatment or procedure have been discussed. The risks and benefits of the proposed treatment or procedures have been reviewed. Alternatives have been reviewed in addition to the risks and benefits of not receiving treatments or undergoing procedures. Pursuant to this discussion, the patient agrees to undergo the proposed treatment or procedure. Captured images seen in this note from are not a substitute for a comprehensive interpretation of the entire data set as reflected by the interpreting physician with regard to radiology, echocardiography, and other diagnostic images. This note may have been dictated using [employer] Medical Practice Edition 2.6 and/or [employer] Voice Recognition Feature. The document was proofread, however unrecognized voice recognition wire drawing machine operator errors may be present. documented in this encounter [facility] Discharge instructions 01-31-2021 Note Date & Type Note Facility 01-31-2021 Hospital Discharg e instructions Patient Education 01/31/2021 06:17:53 Fall Prevention in the Home, Adult, [id number] Fall Prevention in the Home, Adult Falls [...] Keep items that you use often in [id number] places. Lower the shelves around your home [...] of the way. Do not use floor british virgin islander or wax that makes floors slippery. If [...] more information Centers for Disease Control and PreventionROSITA: https://cdc.gov National [place] on Aging: https://op0goij.africa.nih.gov Contact a doctor if: You are afraid [...] 11/30/2009 Document Revised: 05/27/2019 Document Reviewed: 09/18/2017 ffk environment Patient Education 2020 [employer]. Follow Up Care 01/16/2021 12:29:38 With:PURVI YOON MD Address: [address] [place], [place] [id number] When:02/13/2021 13:20:00 Comments:Take Discharge Instructions to Dr Visit With:ALVERTO UPTON DO [facility] [address] [facility] [phone] When:02/13/2021 15:20:00 [employer] Evaluation + Plan note 01-17-2021 Note Date & Type Note Facility Assessment/Plan 1. Cerebral palsy Dr Cuenca. Gait training 2. Fracture of right tibia and fibula Nonweightbearing right lower extremity for gait mobility ADLs and self-care. Physical Occupational Therapy 3. Smoker Cessation. Patient declined nicotine patch Medical Comorbidities at the Time of Admission Cerebral palsy, right tibiofibular fracture, tobacco abuse Consulting Physician Dr Vásquez Estimated Length of Stay 2 weeks Addendum by WU CUENCA DO on [facility] 2020 07:47:41 EST Correct [facility] 08[facility] Discharge instructions 01-15-2021 Note Date & Type Note Facility 01-15-2021 Hospital Discharg e instructions Patient Education 01/15/2021 07:52:50 Cast or Splint Care, Adult, [id number] Cast or Splint Care, Adult Casts and [...] 06/05/2011 Document Revised: 05/26/2019 Document Reviewed: 01/24/2017 [employer] Patient Education 2020 [employer] 01/15/2021 07:52:42 Intramedullary Nailing of Tibial [...] including vitamins, herbs, eye drops, creams, and uskq-vgt-jaxtfgp medicines. Any problems you or family members [...] taking diabetes medicines or blood thinners. ?Taking vcjl-ics-bkhqgip medicines, vitamins, herbs, and supplements. ?Taking medicines [...] 02/08/2014 Document Revised: 02/08/2019 Document Reviewed: 04/09/2017 [employer] Patient Education 2020 [employer]. Follow Up Care 01/13/2021 22:59:10 With:MARVIN SANDY Address: [facility] [address] [place] [id number] Business (1) When:1-2 days With:[facility] [id number] Address:Unknown When: Unknown With:ALVERTO UPTON DO Address: [address] [facility] [address]- When:01/30/2021 09:55:00 Comments:Follow up appointment [facility] Evaluation + Plan note 01-14-2021 Note Date [...] we will transfer services to orthopedics postoperatively [facility] Evaluation note Note Date & Type Note Facility documented in this encounter [facility] course Narrative Note Date & Type Note Facility Hospital course Narrative No data available for this section [facility] Summary Purpose Family History No Family History Records FoundNo Family History Records FoundNo Family History Records Found Advance Directives No Advanced Directives Records FoundNo Advanced Directives Records FoundNo Advanced Directives Records Found Additional Source Comments (unrecognized sect ion and content) No Status Records FoundNo Status Records FoundNo Status Records Found INFORMATION SOURCE (unrecogn ized section and content) DATE CREATED AUTHOR AUTHOR'S ORGANIZ ATION 01/25/2023 [facility] DATE CREATED AUTHOR AUTHOR'S ORGANIZ ATION 04/04/2023 [facility] Reason for Visit (unrecogniz ed section and content) Care Teams (unrecognized sec tion and content) FOR RECORDS PERTAINING TO PATIENTS WHO ARE [...] BE BASED ON THE PRIMARY CLINICAL RECORDS. [employer] [facility]. provides no warranty or guarantee of the accuracy or completeness of information in this document.
[2023-05-03 16:56] LABS: Absolute Lymphocyte Count 0.08 X10^3/uL (0.83-4.51); Absolute Neutrophil Count 0.7 X10^3/uL (2.0-7.7); Basophil# 0.01 X10^3/uL; Basophil% 0.9 % (0-1); Eosinophil# 0.01 X10^3/uL; Eosinophils% 0.9 % (0-5); Hematocrit 31.8 % (40-54); Hemoglobin 10.6 g/dL (13.0-16.5); Lymphocyte # 0.08 X10^3/ul (0.83-4.51); Lymphocyte % 7.5 % (19-41); Mean Corp Hgb Conc 33.3 g/dL (32-36); Mean Corpuscular Hgb 31.2 pg (27.0-32.0); Mean Corpuscular Volume 93.5 fL (80-94); Mean Platelet Vol. 9.6 fl (6.2-12.0); Monocyte# 0.22 X10^3/uL; Monocyte% 20.8 % (0-10); NRBC Flagged by Analyzer 0 % (0-5); Neutrophil # 0.72 X10^3/uL (2.7-7.7); POSITIVE COUNT YES; POSITIVE DIFFERENTIAL YES; Platelet Count 155 K/mm3 (150-450); RBC Distribution Width CV 13.3 % (11.6-14.6); RBC Distribution Width SD 43.8 fl (35.1-43.9)
[2023-05-03 17:02] LABS: Differential Indicated SCAN CRITERIA MET; White Blood Count 1.1 K/mm3 (4.4-11.0)
[2023-05-03 17:05] LABS: ALB/GLOB Ratio 0.9 RATIO (0.9-2.4); AST(SGOT) 11 U/L (15-37); Alanine Aminotransfer ALT/SGPT 16 U/L (16-61); Albumin, Serum 2.8 g/dL (3.2-5.0); Alkaline Phosphatase 56 U/L (45-117); Anion Gap 5 (5-15); BUN 10 mg/dL (7-18); BUN/Creat Ratio 15.5 RATIO (10-20); Calcium,Total 8.4 mg/dL (8.5-10.1); Chloride 110 mmol/L (98-107); Creatinine, Serum 0.65 mg/dL (0.70-1.30); EST Glomerular Filtration Rate 132 mL/min (>60); Est Glom Filt Rate - Afr Amer 160 mL/min (>60); Estimated Creatinine Clearance 111.89 ml/min; Glucose 95 mg/dL (74-106); Lipase 13 U/L (13-75); Potassium 3.4 mmol/L (3.5-5.1); Protein, Total 5.8 g/dL (6.4-8.2); Sodium Level 141 mmol/L (136-145)
[2023-05-03 17:19] LABS: Platelet Estimate ADEQUATE (ADEQ); Red Cell Morphology NORM C+C NORMAL (NORM C&C)
[2023-05-03 17:41] VITALS: BP 115/76; PULSE 65; RESP 18; O2SAT 97
[2023-05-03] MEDS: Potassium Chloride Oral Soln 20 MEQ/15 ML UDC PO (18:40)
[2023-05-03 18:43] VITALS: BP 113/75; PULSE 62; RESP 18; TEMP 37; O2SAT 96
[2023-05-06 14:08] LABS: Pathologist Review Reviewed
== END 2023-05-03 19:09 | disposition home or self-care (01) ==
PROVIDERS: Physician Assistant; Emergency Provider Student in an Organized Health Care Education/Training Program; PCP Family Medicine; Visit Provider Student in an Organized Health Care Education/Training Program
DX: R11.2 Nausea with vomiting, unspecified (principal); C15.5 Malignant neoplasm of lower third of esophagus; E86.0 Dehydration; E87.6 Hypokalemia; Z85.46 Personal history of malignant neoplasm of prostate; Z92.21 Personal history of antineoplastic chemotherapy; F17.210 Nicotine dependence, cigarettes, uncomplicated
CPT/HCPCS: 36591; 71260; 74177; 80053; 83690; 85025; 96361; 96374; 99284; J7030; Q9967; A4216

== ENCOUNTER → 2023-05-20 | Outpatient (CLI) | payer MEDICARE, MEDICAID, SELFPAY ==
--- NOTE | 2023-05-20 11:23 | VDLE_ITS ---
Reason For Study: Right leg swelling RIGHT LEFT GSV is normal. CFV is compressible, spontaneous, phasic, CFV is compressible, spontaneous, phasic, competent, and demonstrates normal competent and demonstrates normal augmentation. augmentation. FV is compressible, spontaneous, phasic, competent and demonstrates normal augmentation. POP V is compressible, spontaneous, phasic, competent and demonstrates normal augmentation. T/P Trunk is compressible. PTV is compressible. RT PerV is compressible. Procedure This is a venous duplex using B-mode, color flow and spectral Doppler. Exam performed in department. A preliminary report was called and/or faxed to Rebecca GARCIA. VL/Venous Duplex US, Unilateral Interpretation Summary There is no evidence of right lower extremity deep vein thrombosis. Right great saphenous vein appears patent and compressible segmentally. Normal flow patterns left common f emoral vein- Ordering Physician: Rebecca Klein Referring Physician: Purvi Yoon M.D. Performed By: Dilcia Temple RVT
== END | disposition home or self-care (01) ==
LOC: CVS 11:21
PROVIDERS: PCP Family Medicine; Referring Provider Nurse Practitioner Family; Visit Provider Nurse Practitioner Family
DX: M79.89 Other specified soft tissue disorders (principal)
CPT/HCPCS: 93971

== ENCOUNTER 2023-07-24 15:48 | Outpatient (RCR) | payer MEDICARE, MEDICAID, SELFPAY | END 2023-08-17 23:59 | LOC: NS 15:48 | PROVIDERS: PCP Family Medicine; Visit Provider Nurse Practitioner Family | DX: Z71.3 Dietary counseling and surveillance (principal); C15.9 Malignant neoplasm of esophagus, unspecified ==

== ENCOUNTER 2023-09-09 11:46 | Emergency (ER) | payer MEDICARE, MEDICAID, SELFPAY ==
[2023-09-09] VITALS (7 sets, daily range): BP systolic 125–136; BP diastolic 82–96; PULSE 61–69; RESP 12–16; TEMP 36.4; O2SAT 96–97; BMI 21.6
--- NOTE | 2023-09-09 11:59 | CT_ITS ---
STUDY: CT BRAIN WITHOUT CONTRAST REASON FOR EXAM: Male, 62 years old. Chronic headaches. History of fall. Patient has a history of esophageal carcinoma. RADIATION DOSAGE (If Supplied By Facility): CTDIvol = ( 44.99 ) mGy, DLP = ( 829.85 ) mGycm TECHNIQUE: Transaxial CT imaging of the brain was performed without administration of intravenous contrast material. Individualized dose optimization techniques were used for this CT. COMPARISON: No relevant priors. FINDINGS: Normal soft tissue structures. Normal calvarium. Normal size ventricles and extra-axial spaces for the patient''s age. Normal white matter tracts of the cerebral hemispheres. Normal basal ganglia and thalami. Normal brainstem. There is a 2.3 cm x 3.6 cm hematoma in the right cerebellar hemisphere with surrounding edema and mass effect. A similar appearing hematoma measuring 3.4 cm x 2.8 cm is seen in the left posterior parietal occipital lobe. A large amount of surrounding edema is seen in the left hemisphere. A metastatic deposit should be ruled out. There is evidence of a 5 mm shift of the midline from the left to the right side of the midline. Normal visualized paranasal sinuses. CT/Brain/Head without Contrast IMPRESSION: 3.6 cm x 2.3 cm hematoma in the right cerebellar hemisphere with surrounding edema and mass effect as well as a 3.4 cm x 2.8 cm hematoma in the posterior aspect of the left parietal-occipital lobes large amount of surrounding edema and midline shift from left to right of 4.9 mm. A metastatic deposit in the left hemisphere should be ruled out even with the patient''s history of a fall. Electronically Signed: Quique Vasquez MD at 12:44 EDT ,
--- NOTE | 2023-09-09 12:00 | EDS_ITS ---
HPI HPI - Fall History of Present Illness Chief Complaint: Fall Informant: patient and spouse/S.O. Occured/Mechanism Occurred: Weeks Mechanism/Context: Yes same level fall and Yes trip Usually ambulates: Cane Pain/Injury Pain Location: none Associated Symptoms Associated Symptoms: Negative for Parasthesias, Weakness, Loss of function or Inability to ambulate Narrative Narrative: 62-year-old male history of esophageal CA which has been treated for the last 6 months with chemo and radiation. No surgery. He has been having headaches the last month or so and has had some trouble with his balance. Today [place] to see his primary care physician and 21 to walk in the waiting room he lost his balance and fell into the fish tank. Denies any significant injuries. Denies any recent vomiting or diarrhea. No fever. Prior similar symptoms: Yes Recent Illness/Hospitalization: No PFSH PFSH Medical History Right leg swelling Hypokalemia Drug induced neutropenia Constipation Encounter for education Cancer Kidney stones Wears glasses Edentulous Marijuana use Abrasion Uses wheelchair Walker as ambulation aid Prostate disease Cerebral palsy Back pain History of ulceration Alcohol use Smoker Home Medications ?Medication ?Instructions ?Recorded ?Last Taken ?Type simethicone 62.5 mg oral strips 1 strip PO QD-BID PRN abdominal 12/11/22 Unknown History (Gas-X) distention phenazopyridine 100 mg tablet 100 mg PO TID PRN pain with 12/17/22 Unknown Rx (Pyridium) urination #30 tabs diphenoxylate-atropine 2.5 1 tab PO BID PRN diarrhea #30 tabs 12/19/22 Unknown Rx mg-0.025 mg tablet (Lomotil) pantoprazole 40 mg tablet,delayed 40 mg PO Q12H 2 months #120 tabs 03/04/23 Unknown Rx release sucralfate 100 mg/mL oral 1 g (10 mL) PO Q6H 4 weeks #1,120 03/04/23 Unknown Rx suspension mL lidocaine-prilocaine 2.5 %-2.5 % 1 applic topical ONCE PRN port 03/24/23 Unknown Rx topical cream access 30 days #30 grams ondansetron 8 mg disintegrating 8 mg PO Q8H PRN nausea and 03/24/23 Unknown Rx tablet vomiting #30 tabs prochlorperazine maleate 10 mg 10 mg PO Q6H PRN nausea and 04/16/23 Unknown Rx tablet vomiting #30 tabs promethazine 25 mg tablet 25 mg PO Q6H PRN 04/21/23 Unknown History metoclopramide HCl 10 mg tablet 10 mg PO Q6H PRN nausea and 05/03/23 Unknown Rx (Reglan) vomiting 3 days #12 tabs Allergy/AdvReac Type Severity Reaction Status Date / Time codeine Allergy NEEDS Verified 09/09/23 11:50 FOLLOW-UP Penicillins Allergy NEEDS Verified 09/09/23 11:50 FOLLOW-UP Family History Brother CVA (cerebral vascular accident) Surgical History History of esophagogastroduodenoscopy (EGD) History of ankle surgery Hx of foot surgery Hx of right knee surgery Social History adopted: No household members: none number of children: 0 current occupational status: retired and disabled pets and animals: No Smoking Status: Current every day smoker tobacco type: cigarettes alcohol intake: former substance use type: does not use ROS ROS ED ROS Narrative Denies recent illness. He has had recent headaches and trouble with his balance. Review of Systems ROS Unobtainable: Denies due to encephalopathy Constitutional Constitutional ED: Denies chills or fever(s) Eyes Eyes: Denies blurry vision ENT ENT ED: Denies ear pain Cardiovascular Cardiovascular: Denies chest pain Respiratory/Chest Respiratory/Chest: Reports cough Gastrointestinal Gastrointestinal: Denies abdominal pain, constipation, diarrhea, melena, nausea or vomiting Genitourinary Genitourinary ED: Denies dysuria or hematuria Musculoskeletal Musculoskeletal: Denies arthralgias, back pain or myalgias Integumentary Denies abscess or Abrasions Neurologic Neurologic: Reports headache(s) and other Details: Balance issues ; Denies paresthesias Psychiatric Psychiatric: Denies depression Endocrine Endocrinology: Denies polydipsia Hematologic/Lymphatic Hematologic/Lymphatic: Denies easy bleeding Allergic/Immunologic Allergic/Immunologic ED: Denies mouth swelling EXAM Physical Exam Narrative Exam Narrative: 62-year-old male no acute distress vital signs stable afebrile. H EENT exam pupils are round and reactive to light. He does not have his dentition currently. Generative murmurs. Neck nontender. There is no signs of trauma to his face or scalp. Lungs coarse breath sounds. Heart regular rhythm rate about 70 no murmur. Chest wall ribs nontender. Abdomen soft nontender. Back nontender. Moving all 4 extremities. He is weak in both lower extremities which is chronic. He has normal tag maker strength bilaterally. There is no tenderness or deformity to either upper or lower extremities. Neurologically he is awake and alert. Answering questions and following commands. Const Vital Signs: 09/09/23 11:47 09/09/23 12:22 09/09/23 13:39 Temperature 97.6 F L Temperature Source Temporal Pulse Rate 67 69 Respiratory Rate 15 13 Respiratory Effort Normal Non-Labored Respiratory Depth Normal Respiratory Pattern Normal Blood Pressure 125/91 H 132/96 H Blood Pressure Mean 102 108 Pulse Ox 96 97 96 Oxygen Delivery Method Room Air Room Air Room Air Positive well nourished and well developed; Negative for obese, cachectic, contractures or unkempt General Appearance ED: well developed and NAD; Negative for unkempt, cachectic or contractures Nutritional Appearance: Negative for cachectic or obese HEENT Reports normocephalic atraumatic; Negative for trauma, contusion, hematoma or tenderness Eyes PERRL and EOMs intact bilaterally General Eye ED: Negative for pale conjunctiva or scleral icterus Neck full ROM, no lymphadenopathy and supple General: Negative for tenderness Chest Wall inspection of chest normal and palpation of chest normal Resp normal respiratory effort and no retractions Resp Narrative: Coarse breath sounds bilaterally. Auscultation: Negative for rales, rhonchi or wheezes Cardio regular rate, regular rhythm, S1 normal heart sound and S2 normal heart sound Rate: Negative for bradycardia or tachycardic Rhythm: Negative for abnormal rhythm Bruits: Negative for other GI non-tender, non-distended and no masses Inspection: Negative for abdominal distention Auscultation: normoactive bowel sounds Palpation: soft; Negative for guarding or rebound tenderness present Back/Spine no CVA tenderness General Back: Negative for CVA tenderness Cervical Spine: Negative for cervical spine tenderness Thoracic Spine / Upper Back: Negative for ROM limited Lumbar Spine / Lower Back: Negative for lumbar spinal tenderness or paraspinal muscle tenderness Neuro oriented x3, CN's II-XII intact bilaterally, moves all extremities and no focal motor deficits Sensorium / Orientation: alert, oriented to person, oriented to place and oriented to time Motor Exam: general weakness Psych mental status grossly normal and thought process normal Appearance: Negative for unkempt Attitude: No agitated Mood & Affect: Negative for depressed, anxious or tearful Skin General Skin Exam: Negative for other Lesions: no lesions Rashes: no rashes MDM MDM MDM Narrative Medical decision making narrative: 62-year-old male history of esophageal CA for the last month has had headaches and trouble with his balance. Today he was at the doctor's office lost his balance and fell. Exam benign. I am in to check screening labs because he looks cachectic and possibly dehydrated. And I am and obtain a CT of his brain not for the fall today but due to the balance issues and his history of cancer. Repeat exam at 1:13 PM no significant change. I explained to the patient what was going on my primary concern is obvious he is get the head bleeds but this may be metastases from esophageal cancer. I am try to get all of the patient's family to help make a decision on how aggressive they want to be with this. I think with his history of this going on for weeks and him having trouble with his balance and headaches that this happened before the day and he may have mets of blood in his brain. Also due to the amount of surrounding edema. I spoke with the patient's sister who was here with him earlier. They do want to be aggressive. He is under the care of an oncologist through [facility] here at [place]. I have already spoken [facility] about a transfer sister is comfortable with that. We are awaiting them to review the CAT scan and except him and transfer. History & Record Review Discussion w/independent historian: Patient and Family Additional record(s) reviewed:: Prior inpatient record, Prior outpatient record, Prior ED visit and Prior labs Lab Data Attestation: I reviewed the patient's lab results. Lab results narrative: CBC white count 7. H&H 13 and 39. Platelets 224. Electrolytes show a sodium of 139 gap 7. Normal BUN and creatinine. Glucose 96. CT of his brain shows 2 areas of hemorrhage concerning for possible hemorrhagic metastases versus just an intracranial bleed. Labs: Laboratory Results - last 24 hr 09/09/23 12:19 WBC 7.3 RBC 4.11 L Hgb 13.0 Hct 39.5 L MCV 96.1 H MCH 31.6 MCHC 32.9 RDW Std Deviation 45.7 H RDW Coeff of Sonia 13.0 Plt Count 224 MPV 8.4 Immature Gran % (Auto) 0.400 Neut % (Auto) 72.4 H Lymph % (Auto) 16.9 L Montgomery % (Auto) 8.3 Eos % (Auto) 1.9 Baso % (Auto) 0.1 Absolute Neuts (auto) 5.3 Absolute Lymphs (auto) 1.24 Nucleated RBC % 0 Sodium 139 Potassium 4.1 Chloride 108 H Carbon Dioxide 24.0 Anion Gap 7 BUN 15 Creatinine 0.72 Estim Creat Clear Calc 103.07 Est GFR (MDRD) Af Amer 141 Est GFR (MDRD) Non-Af 117 BUN/Creatinine Ratio 20.9 H Glucose 96 Calcium 9.5 Radiography Chest X-Ray - ED: 1 View, Read by ED Physician, Read by Radiologist, Normal, Heart, Lungs, Mediastinum, Bony Structures, No Acute Disease and Chronic Changes Diagnostic Testing: Clinical Impression(s) from Imaging Studies Brain CT 09/09/23 11:59 IMPRESSION: 3.6 cm x 2.3 cm hematoma in the right cerebellar hemisphere with surrounding edema and mass effect as well as a 3.4 cm x 2.8 cm hematoma in the posterior aspect of the left parietal-occipital lobes large amount of surrounding edema and midline shift from left to right of 4.9 mm. A metastatic deposit in the left hemisphere should be ruled out even with the patient''s history of a fall. Electronically Signed: Quique Vasquez MD at 12:44 EDT , Chest X-Ray 09/09/23 12:31 IMPRESSION: Dextroconvex scoliosis. Questionable infiltrate in the posterior medial segment of the left lower lobe. Electronically Signed: Quique Vasquez MD at 12:46 EDT , Chest x-ray, portable, single view interpreted by myself and radiology shows no acute abnormality. Normal cardiac silhouette. Scoliosis. No obvious rib fractures no pneumothorax. Critical Care Time Critical Care Time: Yes Critical care time (excluding procedures): 30-74 minutes, Discussing w/Patient &/or Family/Mrp Controller, Discussing w/Consultants, Arranging Admission or Transfer, Performing Direct Patient Care at Bedside and - (35 minutes.) Discharge Plan Triage Chief Complaint: Fall ED Provider: Bang Carrington Dx/Rx/DC Orders Clinical Impression: Intracranial bleed, Hx of esophageal malignancy, Fall Prescriptions: No Action Gas-X 62.5 mg strip 1 strip PO QD-BID PRN (Reason: abdominal distention) phenazopyridine [Pyridium] 100 mg tablet 100 mg PO TID PRN (Reason: pain with urination) Qty: 30 1RF Rx Instructions: take one tab PO tid ondansetron 8 mg tablet,disintegrating 8 mg PO Q8H PRN (Reason: nausea and vomiting) Qty: 30 2RF lidocaine-prilocaine 2.5-2.5 % cream 1 applic topical ONCE PRN (Reason: port access) 30 Days Qty: 30 2RF promethazine 25 mg tablet 25 mg PO Q6H PRN metoclopramide HCl [Reglan] 10 mg tablet 10 mg PO Q6H PRN (Reason: nausea and vomiting) 3 Days Qty: 12 0RF diphenoxylate-atropine [Lomotil] 2.5-0.025 mg tablet 1 tab PO BID PRN (Reason: diarrhea) Qty: 30 0RF Rx Instructions: take one tablet PO as needed for for diarrhea, max 8 per day sucralfate 100 mg/mL suspension 1 g PO Q6H 28 Days Qty: 1120 0RF pantoprazole 40 mg tablet,delayed release (DR/EC) 40 mg PO Q12H 60 Days Qty: 120 3RF prochlorperazine maleate 10 mg tablet 10 mg PO Q6H PRN (Reason: nausea and vomiting) Qty: 30 2RF Primary Care Provider: Purvi Yoon Referrals: Purvi Yoon MD [Primary Care Provider] - Print Language: Dutch
--- NOTE | 2023-09-09 12:31 | RAD_ITS ---
STUDY: X-RAY CHEST REASON FOR EXAM: Male, 62 years old. Cough TECHNIQUE: Single AP portable view of the chest. COMPARISON: Comparison is made with prior study dated March 21, 2023. FINDINGS: EKG electrodes are seen. Questionable infiltrate in the posterior medial segment of the left lower lobe. There is no demonstrated pleural abnormality. Normal size heart. Normal mediastinum and santino. Normal visualized pulmonary arteries. Normal visualized aortic arch and descending thoracic aorta. There is a dextroscoliosis of the thoracic spine. Normal visualized ribs, clavicles, and shoulders. There is no demonstrated abnormality of the visualized soft tissue structures of the upper abdomen. RAD/Chest 1 View (Portable) IMPRESSION: Dextroconvex scoliosis. Questionable infiltrate in the posterior medial segment of the left lower lobe. Electronically Signed: Quique Vasquez MD at 12:46 EDT ,
[2023-09-09 12:32] LABS: Absolute Lymphocyte Count 1.24 X10^3/uL (0.83-4.51); Absolute Neutrophil Count 5.3 X10^3/uL (2.0-7.7); Basophil# 0.01 X10^3/uL; Basophil% 0.1 % (0-1); Eosinophil# 0.14 X10^3/uL; Eosinophils% 1.9 % (0-5); Hematocrit 39.5 % (40-54); Lymphocyte # 1.24 X10^3/ul (0.83-4.51); Lymphocyte % 16.9 % (19-41); Mean Corp Hgb Conc 32.9 g/dL (32-36); Mean Corpuscular Hgb 31.6 pg (27.0-32.0); Mean Corpuscular Volume 96.1 fL (80-94); Mean Platelet Vol. 8.4 fl (6.2-12.0); Monocyte# 0.61 X10^3/uL; Monocyte% 8.3 % (0-10); NRBC Flagged by Analyzer 0 % (0-5); Neutrophil # 5.29 X10^3/uL (2.7-7.7); Neutrophil % 72.4 % (47-70); Platelet Count 224 K/mm3 (150-450); RBC Distribution Width SD 45.7 fl (35.1-43.9); Red Blood Count 4.11 M/mm3 (4.6-6.2); White Blood Count 7.3 K/mm3 (4.4-11.0)
[2023-09-09 12:44] LABS: Anion Gap 7 (5-15); BUN 15 mg/dL (7-18); BUN/Creat Ratio 20.9 RATIO (10-20); Calcium,Total 9.5 mg/dL (8.5-10.1); Chloride 108 mmol/L (98-107); Creatinine, Serum 0.72 mg/dL (0.70-1.30); EST Glomerular Filtration Rate 117 mL/min (>60); Est Glom Filt Rate - Afr Amer 141 mL/min (>60); Estimated Creatinine Clearance 103.07 ml/min; Glucose 96 mg/dL (74-106); Potassium 4.1 mmol/L (3.5-5.1); Sodium Level 139 mmol/L (136-145)
[2023-09-09] MEDS: 0.9% Normal Saline (1000mL) 1,000 ML 1000 ML IV (12:47)
[2023-09-09] MEDS: LORazepam 2 MG/ML Syringe 0.5 MG IV (13:46)
--- NOTE | 2023-09-09 14:22 | ED.RN ---
Pt is unaware of home medication list
[2023-09-09] MEDS: dexAMETHasone 10 MG/ML Vial IV (16:36)
--- NOTE | 2023-09-09 16:59 | ED.RN ---
Attempted report, transfer line declined RN to RN report.
== END 2023-09-09 16:45 | disposition short-term general hospital (02) ==
PROVIDERS: Emergency Provider Emergency Medicine; PCP Family Medicine; Visit Provider Emergency Medicine
DX: I62.9 Nontraumatic intracranial hemorrhage, unspecified (principal); C15.9 Malignant neoplasm of esophagus, unspecified; F17.210 Nicotine dependence, cigarettes, uncomplicated
CPT/HCPCS: 70450; 71045; 80048; 85025; 96361; 96374; 96375; 99285; J7030; A4216

== ENCOUNTER → 2024-01-23 | Outpatient (CLI) | payer MEDICARE, MEDICAID, SELFPAY ==
--- NOTE | 2024-01-23 11:23 | MRI_ITS ---
EXAM: MR HEAD WITHOUT AND WITH INTRAVENOUS CONTRAST CLINICAL INDICATION: METS TECHNIQUE: Multiplanar and multisequence MR images of the brain were obtained without and with intravenous contrast. CONTRAST: IV 13ml Clariscan COMPARISON: CT head, 09/09/2023. FINDINGS: BRAIN AND EXTRA-AXIAL SPACES: Resection changes in the left posterior temporal/lateral occipital region where there is a cavity with subtle peripheral linear enhancement. No masslike enhancement in this region. No additional pathologic intracranial enhancement is identified. No additional discrete mass or mass effect and no shift of midline structures. Minimal hemosiderin staining in the areas described. There is no restricted diffusion in the brain parenchyma to indicate recent infarct. Resection changes in the right posterior cerebellum. At the margins of the resection cavity, small nodular and ringlike enhancing foci are present, the largest measuring approximately 5 mm. No additional pathologic mineralization, intracranial hemorrhage, or pathologic extra-axial fluid. SELLA: No significant abnormality. Normal sella turcica, pituitary gland, infundibular stalk, optic chiasm and hypothalamus. AUDITORY SYSTEM: No significant abnormality. The internal auditory canals are patent. BONES/JOINTS: Degenerative changes in the cervical spine. Right suboccipital craniotomy and left temporal parietal craniotomy changes, new since prior CT. No discrete lytic or blastic abnormalities. SINUSES: Normal as visualized. Clear. MASTOID AIR CELLS: Right mastoid effusion. ORBITS: Normal as visualized. Both globes, extraocular muscles, optic nerves and retrobulbar fat appear unremarkable. VASCULATURE: Normal as visualized. Normal flow voids in the major intracranial circulation. MRI/Brain W/WO Contrast IMPRESSION: Post therapeutic changes related to previously identified hemorrhagic lesions. Small nodular and ring like enhancing foci in the right cerebellum may be indicative of early recurrent or residual disease. Follow-up imaging may be required. No new metastatic foci are present. Electronically Signed: Hernan Malloy DO at 19:19 EST ,
[2024-01-23 11:54] LABS: CREATININE FINGERSTICK < 1.0 mg/dL (0.70-1.30); EGFR FINGERSTICK > 60.0000 mL/min (>60)
== END | disposition home or self-care (01) ==
LOC: MRI 11:13
PROVIDERS: PCP Family Medicine; Referring Provider Nurse Practitioner; Visit Provider Nurse Practitioner
DX: C15.9 Malignant neoplasm of esophagus, unspecified (principal); C79.31 Secondary malignant neoplasm of brain; Z92.3 Personal history of irradiation
CPT/HCPCS: 70553; A9575

== ENCOUNTER 2024-06-02 16:17 | Emergency (ER) | payer MEDICARE, MEDICAID, SELFPAY ==
[2024-06-02 16:18] VITALS: BP 130/82; PULSE 78; RESP 18; TEMP 36.2; O2SAT 95; BMI 22.5
--- NOTE | 2024-06-02 16:29 | ED.VIS.GI ---
HPI HPI - GI History of Present Illness Chief Complaint: Abd Pain Informant: patient Abdominal Pain/Flank Pain Onset: Days (3) Context: Gradual Onset Timing: Continuous Quality: Aching Location: Diffuse Worsened by: Nothing Relieved by: Nothing Nausea/Vomiting/Emesis GI Symptom: Negative for Nausea or Vomiting Diarrhea/Melena/Hematochezia GI Symptom: Negative for Diarrhea, Melena or Hematochezia Associated Symptoms Associated Symptoms: Positive for Dysuria; Negative for Frequency or Hematuria Narrative Narrative: Patient presents with abdominal pain that has been getting worse over the past 3 days. Patient states his pain is diffuse across his abdomen. Patient states nothing makes it better and nothing makes it worse. Patient describes his pain as aching. Patient denies any nausea or vomiting. Patient denies any diarrhea, melena, or hematochezia. Patient does admit to some occasional dysuria. Patient denies any frequency, hematuria, or urgency. 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 PFSH PFSH Medical History Right leg swelling Hypokalemia Drug induced neutropenia Constipation Encounter for education Cancer Kidney stones Wears glasses Edentulous Marijuana use Abrasion Uses wheelchair Walker as ambulation aid Prostate disease Cerebral palsy Back pain History of ulceration Alcohol use Smoker Home Medications ?Medication ?Instructions ?Recorded ?Last Taken ?Type pantoprazole 40 mg tablet,delayed 40 mg PO Q12H 2 months #120 tabs 03/04/23 Unknown Rx release sucralfate 100 mg/mL oral 1 g (10 mL) PO Q6H 4 weeks #1,120 03/04/23 Unknown Rx suspension mL ondansetron 8 mg disintegrating 8 mg PO Q8H PRN nausea and 03/24/23 Unknown Rx tablet vomiting #30 tabs prochlorperazine maleate 10 mg 10 mg PO Q6H PRN nausea and 04/16/23 Unknown Rx tablet vomiting #30 tabs promethazine 25 mg tablet 25 mg PO Q6H PRN 04/21/23 Unknown History metoclopramide HCl 10 mg tablet 10 mg PO Q6H PRN nausea and 05/03/23 Unknown Rx (Reglan) vomiting 3 days #12 tabs famotidine 20 mg tablet 20 mg PO DAILY 10/03/23 Unknown History levetiracetam 750 mg tablet 750 mg PO BID 10/03/23 Unknown History oxycodone 5 mg capsule 5 mg PO Q4H PRN 10/03/23 Unknown History ciprofloxacin HCl 500 mg tablet 500 mg PO BID #14 TABLETS 06/02/24 Unknown Rx Allergy/AdvReac Type Severity Reaction Status Date / Time codeine Allergy NEEDS Verified 06/02/24 16:21 FOLLOW-UP Penicillins Allergy NEEDS Verified 06/02/24 16:21 FOLLOW-UP Family History Brother CVA (cerebral vascular accident) Surgical History History of esophagogastroduodenoscopy (EGD) History of ankle surgery Hx of foot surgery Hx of right knee surgery Social History adopted: No household members: none number of children: 0 current occupational status: retired and disabled pets and animals: No Smoking Status: Current every day smoker tobacco type: cigarettes alcohol intake: former substance use type: does not use ROS ROS ED Constitutional Constitutional ED: Denies chills or fever(s) Eyes Eyes: Denies blurry vision or change in vision ENT ENT ED: Denies rhinorrhea or sore throat Cardiovascular Cardiovascular: Denies chest pain or palpitations Respiratory/Chest Respiratory/Chest: Denies cough or dyspnea Gastrointestinal Gastrointestinal: Reports abdominal pain; Denies diarrhea, melena, nausea or vomiting Genitourinary Genitourinary ED: Reports dysuria; Denies hematuria Musculoskeletal Musculoskeletal: Denies back pain or neck pain Integumentary Denies abscess or rash Neurologic Neurologic: Denies headache(s) or weakness Allergic/Immunologic Allergic/Immunologic ED: Denies mouth swelling or urticaria EXAM Physical Exam Const Vital Signs: 06/02/24 16:18 06/02/24 18:27 Temperature 97.2 F L Temperature Source Oral Pulse Rate 78 64 Respiratory Rate 18 18 Blood Pressure 130/82 H 102/64 Blood Pressure Mean 98 76 Pulse Ox 95 96 Oxygen Delivery Method Room Air Room Air Positive well nourished and well developed Constitutional Narrative: BMI is 22.5. General Appearance ED: well developed and NAD HEENT Reports moist mucous membranes Neck supple and no JVD Resp normal respiratory effort and clear to auscultation bilaterally Cardio regular rate and regular rhythm GI non-distended Palpation: soft and tender epigastric, LLQ, RLQ, LUQ, RUQ, McBurney's point, periumbilical and suprapubic; Negative for guarding or rebound tenderness present Neuro CN's II-XII intact bilaterally, moves all extremities and no sensory deficits noted Sensorium / Orientation: alert Motor Exam: general weakness Psych mental status grossly normal and thought process normal MDM MDM MDM Narrative Medical decision making narrative: Differential diagnosis includes bowel obstruction, perforation, neutropenia, dehydration, electrolyte abnormality, urinary tract infection, gastroenteritis, and colitis. CT scan of the abdomen and pelvis will be obtained to assess for bowel obstruction and perforation. CBC will be obtained to assess for leukocytosis, neutropenia, and anemia. Comprehensive metabolic profile will be obtained to assess for hepatic function, renal function, and electrolyte abnormality. Lipase will be obtained to assess for pancreatitis. Urinalysis will be obtained to assess for urinary tract infection and hematuria. Lab Data Attestation: I reviewed the patient's lab results. Lab results narrative: CBC was reviewed and was within normal limits. Comprehensive metabolic profile was reviewed and was within normal limits. Lipase was reviewed and was normal at 14. Urinalysis was reviewed. Leukocyte esterase was 500 with positive nitrates. There were greater than 100 white blood cells and 1+ bacteria. Labs: Laboratory Results - last 24 hr 06/02/24 06/02/24 16:55 18:03 WBC 10.3 RBC 4.81 Hgb 14.5 Hct 43.2 MCV 89.8 MCH 30.1 MCHC 33.6 RDW Std Deviation 46.5 H RDW Coeff of Sonia 14.1 Plt Count 295 MPV 8.4 Immature Gran % (Auto) 0.600 Neut % (Auto) 69.5 Lymph % (Auto) 15.6 L Mower % (Auto) 11.9 H Eos % (Auto) 2.2 Baso % (Auto) 0.2 Absolute Neuts (auto) 7.2 Absolute Lymphs (auto) 1.61 Nucleated RBC % 0 Sodium 137 Potassium 4.3 Chloride 101 Carbon Dioxide 23.8 Anion Gap 12 BUN 12 Creatinine 1.08 Estim Creat Clear Calc 70.65 Est GFR (MDRD) Non-Af 76 BUN/Creatinine Ratio 11.3 Glucose 100 H Calcium 9.3 Total Bilirubin 0.30 AST 29 ALT 31 Alkaline Phosphatase 111 Total Protein 7.4 Albumin 3.9 Globulin 3.5 Albumin/Globulin Ratio 1.1 Lipase 14 Urine Color Yellow Urine Clarity Cloudy Urine pH 5.0 Ur Specific [place] 1.010 Urine Protein 30 H Urine Glucose (UA) Normal Urine Ketones Negative Urine Occult Blood 150 H Urine Nitrite Positive H Urine Bilirubin Negative Urine Urobilinogen 1 H Ur Leukocyte Esterase 500 H Urine RBC 10-25 SEEN Urine WBC >100 SEEN Ur Squamous Epith Cells 0-5 SEEN Ur Transition Epith Cell 0-5 SEEN Urine Bacteria 1+ Urine Mucus RARE Radiography Diagnostic Testing: Clinical Impression(s) from Imaging Studies Abdomen/Pelvis CT 06/02/24 16:38 IMPRESSION: Circumferential irregular urinary bladder wall thickening, please correlate with urinalysis for infection. If clinically indicated cystoscopy may be helpful for further characterization. Fluid-filled distal small bowel within the right abdomen and fluid-filled right colon, differentials would include ileus versus enteritis. In addition suspected wall thickening of the distal transverse, descending and proximal sigmoid colon, concerning for colitis. Small hiatal hernia with circumferential wall thickening of the distal esophagus, esophagitis can not be excluded. Esophagram or upper endoscopy may be helpful for further characterization. Fluid-filled right inguinal hernia and fat containing left inguinal hernia. Reading Location: [facility] CT scan of the abdomen and pelvis was obtained. There is urinary bladder wall thickening. There is fluid-filled distal small bowel in the right abdomen and fluid-filled right colon. This could be ileus versus enteritis. There is also wall thickening of the distal transverse, descending, and proximal sigmoid colon concerning for colitis. There is no evidence of bowel obstruction or perforation. There is no free air or free fluid. This was interpreted by the radiologist and was also independently reviewed by myself. Additional Tests and Interventions Additional Tests or Interventions: Urine culture was obtained. Treatment and Re-Evaluation :: Smoking cessation was discussed. Patient was given IV fluids, morphine, and Zofran. Patient was feeling better on reevaluation. Patient was advised of his findings. Patient was given a dose of Cipro here. Patient was given a prescription for Cipro. Patient was instructed to drink plenty of fluids. Patient was instructed to follow-up with his primary care physician in 5 to 7 days. Patient was instructed to return if worse in any way. Patient understood and was agreeable with the plan. All questions were answered. Discharge Plan Triage Chief Complaint: Abd Pain ED Provider: Sekou Ascencio Dx/Rx/DC Orders Clinical Impression: Urinary tract infection, Colitis Instructions: ED Bladder Infection, Male (Adult) Prescriptions: New ciprofloxacin HCl 500 mg tablet 500 mg PO BID Qty: 14 0RF No Action ondansetron 8 mg tablet,disintegrating 8 mg PO Q8H PRN (Reason: nausea and vomiting) Qty: 30 2RF promethazine 25 mg tablet 25 mg PO Q6H PRN famotidine 20 mg tablet 20 mg PO DAILY oxycodone 5 mg capsule 5 mg PO Q4H PRN levetiracetam 750 mg tablet 750 mg PO BID metoclopramide HCl [Reglan] 10 mg tablet 10 mg PO Q6H PRN (Reason: nausea and vomiting) 3 Days Qty: 12 0RF sucralfate 100 mg/mL suspension 1 g PO Q6H 28 Days Qty: 1120 0RF pantoprazole 40 mg tablet,delayed release (DR/EC) 40 mg PO Q12H 60 Days Qty: 120 3RF prochlorperazine maleate 10 mg tablet 10 mg PO Q6H PRN (Reason: nausea and vomiting) Qty: 30 2RF Primary Care Provider: Purvi Yoon Referrals: Purvi Yoon MD [Primary Care Provider] - 5-7 Days Print Language: Kittitian Disposition Disposition: Home, Self Care
--- NOTE | 2024-06-02 16:38 | CT_ITS ---
PROCEDURE: ABDOMEN/PELVIS W IV CONT ONLY 06/02/2024 REASON FOR EXAM: ABDOMINAL PAIN TECHNIQUE: Abdomen and pelvis CT with intravenous contrast. Coronal and Sagittal reconstruction series were provided. PATIENT PREPARATION: Per protocol ORAL CONTRAST TYPE: None. AMOUNT: mL CONTRAST: Isovue 370 VOLUME: 95 mL Not Provided Gauge IV One or more dose reduction techniques were used (e.g., Automated exposure control, adjustment of the mA and/or kV according to patient size, use of iterative reconstruction technique. RADIATION DOSE SUMMARY: CTDlvol: 29 mGy DLP: 806 mGycm COMPARISON: None FINDINGS: Lung bases: Mild dependent atelectasis Liver: Normal size. No mass. Gallbladder: Unremarkable Spleen: Normal size. Pancreas: Diffuse fatty atrophy. Adrenals: Unremarkable Kidneys: Normal renal sizes. No hydronephrosis. Bladder: Marked irregular urinary bladder wall thickening, please correlate with urinalysis for infection. Reproductive Organs: Prostatic seeds are demonstrated. Bowel: Small hiatal hernia with circumferential wall thickening of the distal esophagus. Evaluation of the bowel loops are limited due to lack of oral contrast. The stomach is decompressed. Fluid- filled prominent loops of small bowel within the right abdomen, no wall thickening or adjacent stranding is demonstrated. Fluid-filled right colon. The distal transverse, descending and rectosigmoid colon are completely decompressed limiting evaluation. Underlying wall thickening can not be completely excluded. Scattered colonic diverticulosis. Soft tissue: Small fat containing umbilical hernia. Fluid containing right inguinal hernia and fat containing left inguinal hernia. Appendix: The appendix is not clearly visualized. Lymph nodes: No lymphadenopathy. Vasculature: Mild diffuse atherosclerotic calcifications are noted. Peritoneum / Retroperitoneum: No free air or free fluid. Bones: Degenerative changes of the spine. CT/Abdomen/Pelvis W IV Cont ONLY IMPRESSION: Circumferential irregular urinary bladder wall thickening, please correlate wit h urinalysis for infection. If clinically indicated cystoscopy may be helpful for further characterization. Fluid-filled distal small bowel within the right abdomen and fluid-filled right colon, differentials would include ileus versus enteritis. In addition suspected wall thickening of the distal transverse, robert cending and proximal sigmoid colon, concerning for colitis. Small hiatal hernia with circumferential wall thickening of the distal esophagu s, esophagitis can not be excluded. Esophagram or upper endoscopy may be helpful for further characterization. Fluid-filled right inguinal hernia and fat containing left inguinal hernia. Reading Location: [facility]
[2024-06-02] MEDS: Morphine 4 MG/ML Syringe IV (16:52)
[2024-06-02] MEDS: 0.9% Normal Saline (1000mL) 1,000 ML 999 ML IV (16:53)
[2024-06-02] MEDS: Ondansetron 4 MG/2 ML Vial IV (16:53)
[2024-06-02 17:06] LABS: Absolute Lymphocyte Count 1.61 X10^3/uL (0.83-4.51); Absolute Neutrophil Count 7.2 X10^3/uL (2.0-7.7); Basophil# 0.02 X10^3/uL; Basophil% 0.2 % (0-1); Eosinophil# 0.23 X10^3/uL; Eosinophils% 2.2 % (0-5); Hematocrit 43.2 % (40-54); Hemoglobin 14.5 g/dL (13.0-16.5); Lymphocyte # 1.61 X10^3/ul (0.83-4.51); Lymphocyte % 15.6 % (19-41); Mean Corp Hgb Conc 33.6 g/dL (32-36); Mean Corpuscular Hgb 30.1 pg (27.0-32.0); Mean Corpuscular Volume 89.8 fL (80-94); Mean Platelet Vol. 8.4 fl (6.2-12.0); Monocyte# 1.22 X10^3/uL; Monocyte% 11.9 % (0-10); NRBC Flagged by Analyzer 0 % (0-5); Neutrophil # 7.15 X10^3/uL (2.7-7.7); Neutrophil % 69.5 % (47-70); Platelet Count 295 K/mm3 (150-450); RBC Distribution Width CV 14.1 % (11.6-14.6); RBC Distribution Width SD 46.5 fl (35.1-43.9); Red Blood Count 4.81 M/mm3 (4.6-6.2); White Blood Count 10.3 K/mm3 (4.4-11.0)
[2024-06-02 17:48] LABS: Lipase 14 U/L (13-75)
[2024-06-02 17:51] LABS: ALB/GLOB Ratio 1.1 RATIO (0.9-2.4); AST(SGOT) 29 U/L (<=37); Alanine Aminotransfer ALT/SGPT 31 U/L (<=46); Albumin, Serum 3.9 g/dL (3.4-4.8); Alkaline Phosphatase 111 U/L (40-129); Anion Gap 12 (5-15); BUN 12 mg/dL (4-19); BUN/Creat Ratio 11.3 RATIO (10-20); Calcium,Total 9.3 mg/dL (7.6-11.0); Carbon Dioxide 23.8 mmol/L (21.0-32.0); Chloride 101 mmol/L (98-108); Creatinine, Serum 1.08 mg/dL (0.70-1.20); EST Glomerular Filtration Rate 76 (>60); Estimated Creatinine Clearance 70.65 ml/min (50-250); Globulin 3.5 g/dL (2.2-4.2); Glucose 100 mg/dL (70-99); Potassium 4.3 mmol/L (3.3-5.1); Protein, Total 7.4 g/dL (5.9-8.4); Sodium Level 137 mmol/L (133-145)
[2024-06-02 18:27] VITALS: BP 102/64; PULSE 64; RESP 18; O2SAT 96
[2024-06-02 18:51] LABS: Color, Urine Yellow (Yellow); Glucose, Dipstick Normal (Normal); Ketone-Dipstick Negative (Negative); Leukocyte Esterase-Dipstick 500 /ul (Negative); Nitrite-Dipstick Positive (Negative); Occult Blood-Urine 150 /ul (Negative); Protein-Dipstick 30 mg/dl (Negative); Urine Bilirubin Dipstick Negative (Negative); Urine Clarity Cloudy (Clear); Urine Urobilinogen 1 mg/dl (Normal)
[2024-06-02 19:24] LABS: White Blood Cells >100 SEEN /hpf (0-5)
[2024-06-02 19:25] LABS: Bacteria 1+ /hpf (None Seen); Red Blood Cells-Urine 10-25 SEEN /hpf (0-5); Squamous Epithelial Cells - UA 0-5 SEEN /hpf (0-5)
[2024-06-02 19:26] LABS: Mucous, Urine RARE /hpf (<or=2+); Transitional Epithelial - Ur 0-5 SEEN /hpf (0-5)
[2024-06-02] MEDS: Ciprofloxacin 500 MG Tablet PO (19:37)
--- NOTE | 2024-06-02 19:53 | ED.RN ---
This RN and attempted to help the patient get dressed and he was yelling and swinging at me. This RN stated You do not yell or swing at us. We are trying to help you. The patient yelled to get out. This RN stated you can get dressed yourself but I need to push you out of the department. Pt proceeded to get dressed and this RN wheeled him out of the department.
== END 2024-06-02 19:55 | disposition home or self-care (01) ==
PROVIDERS: Emergency Provider Emergency Medicine; PCP Family Medicine; Referring Provider Emergency Medicine; Visit Provider Emergency Medicine
DX: N39.0 Urinary tract infection, site not specified (principal); F17.210 Nicotine dependence, cigarettes, uncomplicated; K52.9 Noninfective gastroenteritis and colitis, unspecified; Z85.01 Personal history of malignant neoplasm of esophagus; Z85.841 Personal history of malignant neoplasm of brain
CPT/HCPCS: 74177; 80053; 81001; 83690; 85025; 87077; 87086; 87088; 87186; 96361; 96374; 96375; 99283; Q9967; A4216; J2405

== ENCOUNTER → 2024-07-30 | Outpatient (CLI) | payer MEDICARE, MEDICAID, SELFPAY ==
--- NOTE | 2024-07-30 16:00 | MRI_ITS ---
PROCEDURE: BRAIN W/WO CONTRAST 07/30/2024 REASON FOR EXAM: BRAIN METS TECHNIQUE: Routine brain MRI without and with intravenous contrast. Multiplanar and multisequence images were obtained. CONTRAST: Clariscan VOLUME: 14 mL COMPARISON: 01/23/2024. FINDINGS: Changes from prior left parietal/occipital craniotomy. Unchanged underlying linear dural thickening enhancement. Surgical changes of the right cerebellum, unchanged. Increase in the size of the right cerebellar nodule measuring 6.3 mm on the current exam. Interval appearance of left cerebellar molina-white matter junction nodule measuring 5.5 mm with mild surrounding edema. Interval appearance of heterogeneously enhancing molina-white matter junction right temporal nodule measuring 1.5 x 1.3 cm with surrounding edema. Interval appearance of left frontal molina-white matter junction heterogeneously enhancing mass measuring 3.5 x 2.8 cm containing hemorrhagic products with moderate surrounding edema and effacement of the corresponding sulci. Secondary compression of the left lateral ventricle. 5 mm midline shift to the right side. Interval appearance of moderate right mastoid effusion. Interval appearance of mild left mastoid effusion. No abnormality is identified in the basal ganglia and thalami. There is no demonstrated extra-axial, intraparenchymal, or intraventricular hemorrhage. There are no abnormal intra-or extra-axial fluid collections. There are no areas of restricted diffusion to suggest acute ischemia. The cerebellopontine angles, internal auditory canals and the cisternal portions of the accoustico - facial nerves are unremarkable. The visualized paranasal sinuses are clear. The visualized portions of the orbits are unremarkable. MRI/Brain W/WO Contrast IMPRESSION: 1. Significant increase in the size and number of metastatic brain lesions, 1 o f them in the left frontal lobe containing hemorrhagic products. 2. 3. Changes from prior left parietal/occipital craniotomy. 4. Unchanged underlying linear dural thickening enhancement. 5. Surgical changes of the right cerebellum, unchanged. 6. Increase in the size of the right cerebellar nodule measuring 6.3 mm on the current exam. 7. Interval appearance of left cerebellar molina-white matter junction nodule pretty suring 5.5 mm with mild surrounding edema. 8. Interval appearance of heterogeneously enhancing molina-white matter junction right temporal nodule measuring 1.5 x 1.3 cm with surrounding edema. 9. Interval appearance of left frontal molina-white matter junction heterogeneous ly enhancing mass measuring 3.5 x 2.8 cm containing hemorrhagic products with moderate surrounding edema and effacement of the corresponding sulci. 10. Secondary compression of the left lateral ventricle. 11. 5 mm midline shift to the right side. 12. Interval appearance of moderate right mastoid effusion. 13. Interval appearance of mild left mastoid effusion. Reading [facility]
== END | disposition home or self-care (01) ==
LOC: MRI 15:05
PROVIDERS: PCP Family Medicine; Referring Provider Nurse Practitioner; Visit Provider Nurse Practitioner
DX: C15.9 Malignant neoplasm of esophagus, unspecified (principal); C79.31 Secondary malignant neoplasm of brain; Z92.3 Personal history of irradiation
CPT/HCPCS: 70553; A9575